=== PATIENT | male | born 1980 | race Caucasian/White ===

== ENCOUNTER 2020-12-06 03:33 | Emergency (ER) | payer BC, SELFPAY ==
[2020-12-06 03:36] VITALS: BP 113/84; PULSE 68; RESP 16; TEMP 35.8; O2SAT 100; BMI 23.1
--- NOTE | 2020-12-06 03:51 | ED.VIS.GEN ---
History of Present Illness Chief Complaint: ETOH Intox Informant: Patient, Family Onset: Today Current Severity: Moderate Maximum Severity: Moderate Narrative: Patient presents secondary to EtOH intoxication and vomiting. Significant other states he had about 6 shots tonight. For about an hour he could not stop vomiting and she became concerned. Patient complains of some mild pain in his epigastrium. - Past Medical History (1) History of pulmonary embolism Status: Resolved Past Medical History - Allergies and Home Meds Allergies/Adverse Reactions: Allergies No Known Allergies Allergy (Verified 12/06/20 03:34) Primary Care Physician: Care Physician,No Primary [NON-STAFF] - Prior records reviewed: Yes Surgical History: no surgical history Lives: Spouse/ Significant Other Smoking Status: Current some day smoker Review of Systems General: Denies: Chills, Fever ENT: Reports: Sore throat. Denies: Bilateral ear pain Cardiovascular: Denies: Chest pain Respiratory: Denies: Dyspnea, Cough Gastrointestinal: Reports: Abdominal pain, Nausea, Vomiting. Denies: Diarrhea Genitourinary: Denies: Dysuria Musculoskeletal: Denies: Swelling, Extremity Pain Skin: Denies: Rash Hematologic: Denies: Easy bruising, Easy bleeding Allergy: Denies: Uticaria Physical Exam Vital Signs/Narrative: Vital Signs Temp Pulse Resp BP Pulse Ox 12/06/20 03:36 96.4 F L 68 16 113/84 H 100 Inital Vital Signs reviewed: Yes General: Well nourished, Well developed Head: Normocephalic Cardiovascular: Regular rate, Regular rhythm Respiratory: No distress, CTA bilaterally Abdomen: Soft, Tender - Mild tenderness in the epigastrium.. Negative for: Guarding, Rebound tenderness Skin: Normal color Neurological: Alert Psychological: Normal affect Diagnostic/Tx/Re-eval - Medical Decision Making Patient was given a liter IV fluid along with a dose of Zofran. On repeat evaluation he has been sleeping comfortably. He states he feels little bit better. is comfortable watching him at home. He will be discharged with her. ED Disposition - Plan for ED Patient: Disposition: Home or Assisted Living Diagnosis: Alcohol intoxication Instructions: ED Alcohol Abuse Referrals: Marshall Guillen DO [NON CLINICAL AFFILIATE] - As Needed
[2020-12-06] MEDS: 0.9% Normal Saline 1,000 ML 1000 ML IV (04:40)
[2020-12-06] MEDS: Ondansetron 4 MG/2 ML Vial IV (04:40)
[2020-12-06 05:31] VITALS: BP 113/69; PULSE 65; RESP 15; O2SAT 99
[2020-12-06 06:01] VITALS: BP 114/71; PULSE 60; RESP 18; O2SAT 98
== END 2020-12-06 06:02 | disposition home or self-care (01) ==
PROVIDERS: Emergency Provider Emergency Medicine; PCP Family Medicine
DX: F10.129 Alcohol abuse with intoxication, unspecified (principal); Z86.711 Personal history of pulmonary embolism
CPT/HCPCS: 96361; 96374; 99284; A4216; J2405

== ENCOUNTER 2022-03-19 09:48 | Emergency (ER) | payer BC, SELFPAY ==
[2022-03-19 09:48] VITALS: BP 129/86; PULSE 50; RESP 17; TEMP 35.9; O2SAT 99; BMI 23.6
--- NOTE | 2022-03-19 10:10 | CT_ITS ---
STUDY: CT ABDOMEN AND PELVIS WITH CONTRAST REASON FOR EXAM: Male, 41 years old. RIGHT FLANK PAIN RADIATION DOSAGE (If Supplied By Facility): CTDIvol = ( 13.55 ) mGy, DLP = ( 389.50 ) mGycm TECHNIQUE: Transaxial images were obtained from the dome of the diaphragm to the symphysis pubis without oral contrast. IV 100mL Isovue-300 was administered. Sagittal and coronal images were reconstructed. Individualized dose optimization techniques were used for this CT. COMPARISON: None. FINDINGS: Minimal linear atelectasis at the lung bases. The visualized portions of the heart are within normal limits. There is a 3.1 mm cyst in the inferior aspect of the right lobe of the liver. Normal gallbladder and extrahepatic biliary system. Normal spleen. Normal pancreas. Normal bilateral adrenal glands. Normal right kidney. Normal left kidney. Normal visualized stomach. Normal small intestine. There are multiple colonic diverticula consistent with diverticulosis. The appendix is visualized and appears normal. Normal abdominal aorta. Normal inferior vena cava. Normal retroperitoneum. There is a 2 mm calculus at the base of the bladder on the right side. This is suggestive of a recently passed right ureteral calculus. Normal abdominal wall. Deformity along the inferior anterior aspect of the L2 vertebrae. Mild anterior spondylosis at the L2-L3 and L3-L4 levels. CT/Abdomen/Pelvis W IV Cont ONLY IMPRESSION: 2 mm calculus is seen at the base of the bladder on the right side. This is suggestive of a recently passed right ureteral calculus. Tiny subcentimeter cyst in the right lobe of the liver. Sigmoid diverticulosis. Electronically Signed: Harjit Armenta MD at 10:46 EDT ,
--- NOTE | 2022-03-19 10:11 | ED.VIS.GI ---
HPI HPI - GI History of Present Illness Chief Complaint: Abd Pain Informant: patient Abdominal Pain/Flank Pain Onset: Today Timing: Continuous Quality: Aching Location: Right Flank Current Severity: Mild Maximum Severity: Mild Worsened by: Nothing Relieved by: Nothing Nausea/Vomiting/Emesis GI Symptom: Negative for Nausea or Vomiting Diarrhea/Melena/Hematochezia GI Symptom: Negative for Diarrhea, Melena or Hematochezia Narrative Narrative: 41-year-old male COVID-positive from about 10 days ago. Prior history of pulmonary emboli about 10 years ago. States about half an hour ago after waking up he noticed right flank pain. Denies any nausea, vomiting, diarrhea or constipation. No melena or fever. Mild right testicular pain. No dysuria or hematuria. No prior history of pain like this before. No injury or trauma. Nothing particular makes the pain better or worse. He has never had any abdominal surgeries. Prior similar symptoms: No Recent Illness/Hospitalization: No PFSH PFSH Medical History Pulmonary embolism Home Medications NK 12/06/20 [History Last Taken Unknown] Allergy/AdvReac Type Severity Reaction Status Date / Time No Known Allergies Allergy Verified 03/19/22 09:48 Social History Smoking Status: Current some day smoker tobacco type: cigarettes ROS ROS ED ROS Narrative Right flank abdominal pain. Review of Systems ROS Unobtainable: Denies due to encephalopathy Constitutional Constitutional ED: Denies chills ENT ENT ED: Denies ear pain Cardiovascular Cardiovascular: Denies chest pain Respiratory/Chest Respiratory/Chest: Denies cough Gastrointestinal Gastrointestinal: Reports abdominal pain; Denies constipation, diarrhea, melena, nausea or vomiting Genitourinary Genitourinary ED: Denies dysuria or hematuria Musculoskeletal Musculoskeletal: Denies arthralgias Integumentary Denies abscess Neurologic Neurologic: Denies headache(s) Psychiatric Psychiatric: Denies anxiety Endocrine Endocrinology: Denies polydipsia Hematologic/Lymphatic Hematologic/Lymphatic: Denies easy bleeding Allergic/Immunologic Allergic/Immunologic ED: Denies mouth swelling EXAM Physical Exam Narrative Exam Narrative: 41-year-old male no acute distress. Vital signs are stable afebrile. H EENT exam unremarkable. Multiple piercings. Moist mucous membranes. Neck nontender no lymphadenopathy. Lungs clear to auscultation bilaterally. Heart regular rhythm rate about 55 no murmur. Abdomen soft nondistended normal bowel sounds no peritoneal signs. No signs of trauma. Mild reproducible tenderness on the midportion of the right flank. Below the right upper quadrant and above McBurney's point. No distention. No hernia. No signs of obstruction. Back tenderness. Moving all 4 extremities. Neurologically is awake and alert. Const Vital Signs: 03/19/22 09:48 Temperature 96.7 F L Temperature Source Temporal Pulse Rate 50 L Respiratory Rate 17 Blood Pressure 129/86 H Blood Pressure Mean 100 Pulse Ox 99 Oxygen Delivery Method Room Air Positive well nourished and well developed; Negative for obese, cachectic, contractures or unkempt General Appearance ED: well developed; Negative for unkempt, cachectic, contractures or pallor Nutritional Appearance: Negative for cachectic or obese HEENT Reports moist mucous membranes normocephalic and atraumatic; Negative for trauma or tenderness Eyes PERRL and EOMs intact bilaterally General Eye ED: Negative for pale conjunctiva or scleral icterus Neck no lymphadenopathy, supple and no JVD General: Negative for tenderness Carotids: Negative for other Lymph Lymphatic: Negative for other Resp normal respiratory effort and clear to auscultation bilaterally Effort and Inspection: Negative for respiratory distress, retractions or pain with movement Auscultation: Negative for rales, rhonchi or wheezes Cardio regular rhythm, S1 normal heart sound and S2 normal heart sound; Negative for regular rate Rate: bradycardia GI non-distended and no masses; Negative for non-tender Inspection: Negative for abdominal distention Auscultation: normoactive bowel sounds; Negative for hyperactive bowel sounds or hypoactive bowel sounds Palpation: soft and tender; Negative for guarding, rigid, hepatomegaly, splenomegaly, hernia, mass or pulsatile mass Back/Spine no CVA tenderness General Back: Negative for CVA tenderness Cervical Spine: Negative for cervical spine tenderness Thoracic Spine / Upper Back: Negative for thoracic spinal tenderness Lumbar Spine / Lower Back: Negative for lumbar spinal tenderness Coccyx: Negative for other Extremity full ROM General Extremety ED: Negative for edema or tenderness General Extremity: Negative for edema Neuro CN's II-XII intact bilaterally, moves all extremities and no sensory deficits noted Sensorium / Orientation: alert, oriented to person, oriented to place and oriented to time; Negative for orientation impaired, confused or lethargic Motor Exam: strength 5/5 throughout Psych Appearance: Negative for unkempt Skin no wounds General Skin Exam: Negative for jaundice or pallor Lesions: no lesions Rashes: no rashes Trauma: Negative for abrasion Nails: Negative for discolored MDM MDM MDM Narrative Medical decision making narrative: 41-year-old male with right flank pain. Mildly reproducible. Not a McBurney's point. No Monge sign. No history or signs of trauma. CAT scan and labs being obtained. He did not want anything for pain or nausea at this time. Repeat exam patient doing well at 11:07 AM. Will be discharged home. Tylenol and/or Motrin for pain. Lab Data Attestation: I reviewed the patient's lab results. Lab results narrative: CBC White count of 4. H&H 15 and 45. Platelets unremarkable. Gap 3 BUN and creatinine of 17 and 1. Liver enzymes normal. Lipase normal at 97. CTA shows a recently passed ureteral calculi and bladder about 2 mm. Right great thank you as read by the radiologist. Reviewed by me. Urine has no nitrates. 150 occult blood. Consistent with a recently passed stone. No infection. 5-10 red cells on the microscopic. No white cells. No bacteria. Labs: Laboratory Results - last 24 hr 03/19/22 03/19/22 03/19/22 10:10 10:10 10:41 WBC 4.7 RBC 4.96 Hgb 15.1 Hct 45.2 MCV 91.1 MCH 30.4 MCHC 33.4 RDW Std Deviation 40.6 RDW Coeff of Gregoria 12.3 Plt Count 275 MPV 9.3 Immature Gran % (Auto) 0.600 Neut % (Auto) 55.1 Lymph % (Auto) 31.9 [place] % (Auto) 6.3 Eos % (Auto) 5.5 H Baso % (Auto) 0.6 Absolute Neuts (auto) 2.6 Absolute Lymphs (auto) 1.51 Nucleated RBC % 0 Sodium 138 Potassium 4.0 Chloride 109 H Carbon Dioxide 26.0 Anion Gap 3 L BUN 17 Creatinine 1.03 Estim Creat Clear Calc 86.03 Est GFR (MDRD) Af Amer 103 Est GFR (MDRD) Non-Af 85 BUN/Creatinine Ratio 16.5 Glucose 106 Calcium 8.3 L Total Bilirubin 0.20 AST 16 ALT 22 Alkaline Phosphatase 65 Total Protein 6.6 Albumin 3.4 Globulin 3.2 Albumin/Globulin Ratio 1.1 Lipase 97 Urine Color Yellow Urine Clarity Clear Urine pH 6.0 Ur Specific [place] 1.015 Urine Protein 30 H Urine Glucose (UA) Normal Urine Ketones Negative Urine Occult Blood 150 H Urine Nitrite Negative Urine Bilirubin Negative Urine Urobilinogen Normal Ur Leukocyte Esterase Negative Urine RBC 5-10 SEEN Urine WBC 0-5 SEEN Ur Squamous Epith Cells 0 SEEN Urine Bacteria 0 SEEN Urine Mucus 0 SEEN Radiography Diagnostic Testing: Clinical Impression(s) from Imaging Studies Abdomen/Pelvis CT 03/19/22 10:10 IMPRESSION: 2 mm calculus is seen at the base of the bladder on the right side. This is suggestive of a recently passed right ureteral calculus. Tiny subcentimeter cyst in the right lobe of the liver. Sigmoid diverticulosis. Electronically Signed: Harjit Armenta MD at 10:46 EDT , Discharge Plan Triage Chief Complaint: Abd Pain ED Provider: Shyam Edge Dx/Rx/DC Orders Clinical Impression: Kidney stone on right side Instructions: ED Kidney Stone w/ Colic Prescriptions: No Action NK Primary Care Provider: Fermin Ludwig Referrals: Fermin Ludwig MD [Primary Care Provider] - As Needed Activity Restrictions/Additional Instructions: You have a small kidney stone in your passage or in your bladder. You should not have any significant pain. This will be passed in your urine in the next several days. Motrin and/or Tylenol for any further pain. Follow-up with your doctor as needed. Disposition Disposition: Home, Self Care
[2022-03-19 10:25] LABS: Absolute Lymphocyte Count 1.51 X10^3/uL (0.83-4.51); Absolute Neutrophil Count 2.6 X10^3/uL (2.0-7.7); Basophil# 0.03 X10^3/uL; Basophil% 0.6 % (0-1); Eosinophil# 0.26 X10^3/uL; Eosinophils% 5.5 % (0-5); Hematocrit 45.2 % (40-54); Hemoglobin 15.1 g/dL (13.0-16.5); Lymphocyte # 1.51 X10^3/ul (0.83-4.51); Lymphocyte % 31.9 % (19-41); Mean Corp Hgb Conc 33.4 g/dL (32-36); Mean Corpuscular Hgb 30.4 pg (27.0-32.0); Mean Corpuscular Volume 91.1 fL (80-94); Mean Platelet Vol. 9.3 fl (6.2-12.0); Monocyte% 6.3 % (0-10); NRBC Flagged by Analyzer 0 % (0-5); Neutrophil % 55.1 % (47-70); Platelet Count 275 K/mm3 (150-450); RBC Distribution Width CV 12.3 % (11.6-14.6); RBC Distribution Width SD 40.6 fl (35.1-43.9); Red Blood Count 4.96 M/mm3 (4.6-6.2); White Blood Count 4.7 K/mm3 (4.4-11.0)
[2022-03-19 10:42] LABS: ALB/GLOB Ratio 1.1 RATIO (0.9-2.4); AST(SGOT) 16 U/L (15-37); Alanine Aminotransfer ALT/SGPT 22 U/L (16-61); Albumin, Serum 3.4 g/dL (3.2-5.0); Alkaline Phosphatase 65 U/L (45-117); Anion Gap 3 (5-15); BUN 17 mg/dL (7-18); BUN/Creat Ratio 16.5 RATIO (10-20); Calcium,Total 8.3 mg/dL (8.5-10.1); Chloride 109 mmol/L (98-107); Creatinine, Serum 1.03 mg/dL (0.70-1.30); EST Glomerular Filtration Rate 85 mL/min (>60); Est Glom Filt Rate - Afr Amer 103 mL/min (>60); Estimated Creatinine Clearance 86.03 ml/min; Globulin 3.2 g/dL (2.2-4.2); Glucose 106 mg/dL (74-106); Lipase 97 U/L (73-393); Protein, Total 6.6 g/dL (6.4-8.2); Sodium Level 138 mmol/L (136-145)
[2022-03-19 10:50] LABS: Bacteria 0 SEEN /hpf (None Seen); Mucous, Urine 0 SEEN /hpf (<or=2+); Squamous Epithelial Cells - UA 0 SEEN /hpf (0-5)
[2022-03-19 10:53] LABS: Color, Urine Yellow (Yellow); Glucose, Dipstick Normal (Normal); Ketone-Dipstick Negative (Negative); Leukocyte Esterase-Dipstick Negative /ul (Negative); Nitrite-Dipstick Negative (Negative); Occult Blood-Urine 150 /ul (Negative); Protein-Dipstick 30 mg/dl (Negative); Specific Gravity, Urine 1.015 (1.002-1.030); Urine Bilirubin Dipstick Negative (Negative); Urine Clarity Clear (Clear); Urine Urobilinogen Normal (Normal)
[2022-03-19 11:10] LABS: Red Blood Cells-Urine 5-10 SEEN /hpf (0-5); White Blood Cells 0-5 SEEN /hpf (0-5)
[2022-03-19 11:24] VITALS: BP 116/73; PULSE 49; RESP 16; O2SAT 98
== END 2022-03-19 11:25 | disposition home or self-care (01) ==
PROVIDERS: Emergency Provider Emergency Medicine; PCP Family Medicine; Visit Provider Emergency Medicine
DX: N21.0 Calculus in bladder (principal); F17.210 Nicotine dependence, cigarettes, uncomplicated; U07.1 COVID-19
CPT/HCPCS: 74177; 80053; 81001; 83690; 85025; 99283; Q9967; A4216

== ENCOUNTER 2023-07-22 20:12 | Emergency (ER) | payer BC, SELFPAY ==
[2023-07-22 20:13] VITALS: BP 131/86; PULSE 70; RESP 16; TEMP 36.1; O2SAT 98; BMI 25.5
[2023-07-22 20:17] VITALS: BP 131/86; PULSE 70; RESP 16; TEMP 36.1; O2SAT 98
[2023-07-22 20:22] VITALS: O2SAT 98
--- NOTE | 2023-07-22 21:27 | CT_ITS ---
EXAM: CT ANGIOGRAPHY CHEST WITHOUT AND WITH INTRAVENOUS CONTRAST CLINICAL INDICATION: chest pain TECHNIQUE: Helically acquired angiography images were obtained of the chest without and with intravenous contrast. This CT exam was performed using one or more of the following dose reduction techniques: automated exposure control, adjustment of the mA and/or kV according to patient size, and/or use of iterative reconstruction technique. MIP reconstructed images were created and reviewed. CONTRAST: IV 100mL Isovue-370 RADIATION DOSE: Total DLP: 296.81 mGy-cm. COMPARISON: Portable chest radiograph of this same date. FINDINGS: PULMONARY ARTERIES: Unremarkable. Normal in caliber. No evidence of pulmonary embolism. AORTA: Unremarkable. Normal in caliber. No evidence of dissection. GREAT VESSELS OF AORTIC ARCH: Unremarkable. Normal in caliber. No evidence of dissection. LUNGS AND PLEURAL SPACES: Linear scarring noted at the lung bases. Minimal pleural parenchymal scarring at the right lung base laterally. No acute pulmonary infiltrates. No pleural effusion. No mass. No pneumothorax. HEART: No coronary artery calcification is visualized. No significant pericardial effusion. MEDIASTINUM: Unremarkable. No mediastinal or hilar adenopathy. Esophagus is unremarkable. No hiatal hernia. THYROID: Unremarkable. No thyroid lesions. BONES/JOINTS: No acute osseous abnormality. Minimal thoracic degenerative spurring. Upper lumbar degenerative disc disease. No suspicious lytic or blastic abnormality. INTRAPERITONEAL SPACE: Visualized portions of the liver, gallbladder, pancreas, spleen, adrenal glands and renal upper poles are unremarkable. No pneumoperitoneum is noted. CT/CTA Chest W/WO Contrast IMPRESSION: Negative for PE. No thoracic aortic dissection or acute pulmonary infiltrates. Electronically Signed: Jimmy Nunes MD at 23:12 EST ,
--- NOTE | 2023-07-22 21:27 | EKG12_ITS ---
Test Reason : DYSRHYTHMIA Blood Pressure : / mmHG Vent. Rate : 056 BPM Atrial Rate : 056 BPM P-R Int : 126 ms QRS Dur : 076 ms QT Int : 406 ms P-R-T Axes : 047 051 028 degrees QTc Int : 391 ms Sinus bradycardia Otherwise normal ECG Confirmed by FIDE HOWELL, SHOAIB ([id number]), scientific publications editor YELENA ALDRIDGE ([id number]) on 07/25/2023 10:43:02 AM Referred By: MISTY Confirmed By:SHOAIB ELIZALDE MD
--- NOTE | 2023-07-22 21:51 | EDS_ITS ---
HPI History of Present Illness Chief Complaint: Cough Narrative Narrative: 42-year-old male presenting with right-sided chest pain, dyspnea, cough times a month and a half. Patient states he was seen by urgent care last week and a chest x-ray which was normal. He was put on prednisone and has been doing butyryl but does not feeling better. He notes that he is coughing up blood- tinged sputum. Denies fevers anymore. States his chest wall pain on the right feels like musculoskeletal pain. Patient does report a history of unprovoked PE in the past. He is not sure why he had it but he is admitted for heparin drip. No source was found. Patient has not had 1 since. He is not currently anticoagulated. History of cardiac disease. PFSH PFSH Medical History Pulmonary embolism Smoker Home Medications albuterol sulfate 90 mcg/actuation aerosol inhaler 2 puff inhalation Q4H PRN shortness of breath or wheezing 07/22/23 [History Last Taken Unknown] prednisone 20 mg tablet 40 mg PO DAILY 07/22/23 [History Last Taken Unknown] Allergy/AdvReac Type Severity Reaction Status Date / Time No Known Allergies Allergy Verified 07/22/23 20:12 Social History Smoking Status: Light Smoker (<10/day) ROS [facility] ED Constitutional Constitutional ED: Denies chills, fever(s) or sweats Eyes Eyes: Denies blurry vision or change in vision ENT ENT ED: Denies ear pain or sore throat Cardiovascular Cardiovascular: Reports chest pain; Denies palpitations or racing heartbeat Respiratory/Chest Respiratory/Chest: Reports cough, dyspnea and other Details: Blood-tinged sputum ; Denies sputum Gastrointestinal Gastrointestinal: Denies abdominal pain, constipation, diarrhea, nausea or vomiting Genitourinary Genitourinary ED: Denies dysuria, hematuria or urinary frequency Musculoskeletal Musculoskeletal: Denies arthralgias, myalgias or neck pain Integumentary Denies abscess, Abrasions or rash Neurologic Neurologic: Denies headache(s), paresthesias or weakness Psychiatric Psychiatric: Denies anxiety, depression, suicidal ideation or suicidal thoughts Endocrine Endocrinology: Denies polydipsia or polyuria EXAM Physical Exam Const Vital Signs: 07/22/23 20:13 07/22/23 20:17 07/22/23 20:22 Temperature 96.9 F L 96.9 F L Temperature Source Temporal Temporal Pulse Rate 70 70 Respiratory Rate 16 16 Respiratory Effort Normal Respiratory Depth Normal Respiratory Pattern Normal Blood Pressure 131/86 H 131/86 H Blood Pressure Mean 101 101 Pulse Ox 98 98 Oxygen Delivery Method Room Air Room Air Room Air 07/22/23 22:09 07/22/23 21:27 Temperature Temperature Source Pulse Rate 66 Respiratory Rate 16 Respiratory Effort Respiratory Depth Respiratory Pattern Blood Pressure 136/92 H Blood Pressure Mean 106 Pulse Ox 98 Oxygen Delivery Method Room Air Room Air Positive well nourished General Appearance ED: NAD; Negative for pallor HEENT Reports moist mucous membranes Eyes PERRL and EOMs intact bilaterally Neck no lymphadenopathy Resp normal respiratory effort Auscultation: rhonchi right lower and wheezes right lower Cardio regular rate and regular rhythm GI non-tender Extremity normal to inspection General Extremety ED: Negative for edema or tenderness General Extremity: Negative for edema Neuro oriented x3 and CN's II-XII intact bilaterally Sensorium / Orientation: alert Psych mental status grossly normal Skin no wounds General Skin Exam: Negative for jaundice or pallor MDM MDM MDM Narrative Medical decision making narrative: 42-year-old male present with cough, shortness of breath, chest wall pain on the right. History of PE currently having some blood-tinged sputum. Differential includes ACS, pneumonia, PE, dehydration, electrolyte abnormalities, costochondritis. CBC was obtained to assess white blood cell count, hemoglobin, platelets. BMP was obtained to assess renal function and electrolytes. High- sensitivity troponin and EKG were obtained to assess for ischemia/dysrhythmia. We discussed doing a D-dimer however the patient has a history of PE which is unprovoked so we decided we would go CBC, BMP, troponin, EKG. EG shows sinus bradycardia without sign of ischemic change or ectopy. This is on my interpretation. Chest x-ray shows no acute process my interpretation. CBC, BMP, troponin all within normal limits. CTA was performed to rule out PE and this is negative for PE, dissection, infiltrates. Patient counseled on findings. At this point I feel patient stable for discharge. I recommended follow-up with his primary care provider in 5 to 7 days. Return precautions discussed. impression: 1. Right-sided chest pain 2. Dyspnea 3. History of PE Lab Data Labs: Laboratory Results - last 24 hr 07/22/23 21:32 WBC 8.5 RBC 5.19 Hgb 15.7 Hct 47.2 MCV 90.9 MCH 30.3 MCHC 33.3 RDW Std Deviation 42.2 RDW Coeff of Gregoria 12.7 Plt Count 364 MPV 8.2 Immature Gran % (Auto) 0.500 Neut % (Auto) 90.2 H Lymph % (Auto) 7.9 L [place] % (Auto) 0.9 Eos % (Auto) 0.0 Baso % (Auto) 0.5 Absolute Neuts (auto) 7.6 Absolute Lymphs (auto) 0.67 L Nucleated RBC % 0 Sodium 138 Potassium 4.3 Chloride 105 Carbon Dioxide 27.0 Anion Gap 6 BUN 21 H Creatinine 1.14 Estim Creat Clear Calc 76.95 Est GFR (MDRD) Af Amer 91 Est GFR (MDRD) Non-Af 75 BUN/Creatinine Ratio 18.4 Glucose 152 H Calcium 8.7 Troponin I High Sens 5 Radiography Diagnostic Testing: Clinical Impression(s) from Imaging Studies Chest CTA 07/22/23 21:27 IMPRESSION: Negative for PE. No thoracic aortic dissection or acute pulmonary infiltrates. Electronically Signed: Jimmy Nunes MD at 23:12 EST , Chest X-Ray 07/22/23 21:53 IMPRESSION: Slight blunting of the right lateral costophrenic angle by a minimal pleural effusion or basilar pleural thickening. No acute pulmonary infiltrates. Electronically Signed: Jimmy Nunes MD at 22:31 EST , Discharge Plan Triage Chief Complaint: Cough ED Provider: Anthony Greenfield Dx/Rx/DC Orders Instructions: ED Bronchitis, No Antibiotic (Adult) Prescriptions: No Action albuterol sulfate 90 mcg/actuation HFA aerosol inhaler 2 puff INHALATION Q4H PRN (Reason: shortness of breath or wheezing) Patient Comments: inhale 2 puffs by mouth and INTO THE LUNGS every 4 hours if neede... (REFER TO PRESCRIPTION NOTES). prednisone 20 mg tablet 40 mg PO DAILY Patient Comments: take 2 tablets by mouth once daily for 5 days Primary Care Provider: Aurora Anton Referrals: Aurora Anton, [employer] [Primary Care Provider] - Disposition Disposition: Home, Self Care
--- NOTE | 2023-07-22 21:53 | RAD_ITS ---
EXAM: XR CHEST, 1 VIEW CLINICAL INDICATION: chest pain TECHNIQUE: Frontal view of the chest. COMPARISON: No relevant prior studies available. FINDINGS: LUNGS AND PLEURAL SPACES: No consolidation or edema. No pneumothorax. Slight blunting of the right lateral costophrenic angle by pleural thickening versus minimal pleural effusion. Left lateral costophrenic angle is not blunted. HEART: Unremarkable. Cardiac silhouette not enlarged. Normal pulmonary vasculature. MEDIASTINUM: Minimal elongation of the thoracic aorta. No hilar enlargement or mediastinal widening. Trachea is midline. BONES/JOINTS: Unremarkable. No acute osseous abnormality. SOFT TISSUES: Unremarkable. RAD/Chest 1 View (Portable) IMPRESSION: Slight blunting of the right lateral costophrenic angle by a minimal pleural effusion or basilar pleural thickening. No acute pulmonary infiltrates. Electronically Signed: Jimmy Nunes MD at 22:31 EST ,
[2023-07-22 21:54] LABS: Absolute Lymphocyte Count 0.67 X10^3/uL (0.83-4.51); Absolute Neutrophil Count 7.6 X10^3/uL (2.0-7.7); Basophil# 0.04 X10^3/uL; Basophil% 0.5 % (0-1); Hematocrit 47.2 % (40-54); Hemoglobin 15.7 g/dL (13.0-16.5); Lymphocyte # 0.67 X10^3/ul (0.83-4.51); Lymphocyte % 7.9 % (19-41); Mean Corp Hgb Conc 33.3 g/dL (32-36); Mean Corpuscular Hgb 30.3 pg (27.0-32.0); Mean Corpuscular Volume 90.9 fL (80-94); Mean Platelet Vol. 8.2 fl (6.2-12.0); Monocyte# 0.08 X10^3/uL; Monocyte% 0.9 % (0-10); NRBC Flagged by Analyzer 0 % (0-5); Neutrophil # 7.64 X10^3/uL (2.7-7.7); Neutrophil % 90.2 % (47-70); Platelet Count 364 K/mm3 (150-450); RBC Distribution Width CV 12.7 % (11.6-14.6); RBC Distribution Width SD 42.2 fl (35.1-43.9); Red Blood Count 5.19 M/mm3 (4.6-6.2); White Blood Count 8.5 K/mm3 (4.4-11.0)
[2023-07-22 22:09] VITALS: BP 136/92; PULSE 66; RESP 16; O2SAT 98
[2023-07-22 22:11] LABS: Anion Gap 6 (5-15); BUN 21 mg/dL (7-18); BUN/Creat Ratio 18.4 RATIO (10-20); Calcium,Total 8.7 mg/dL (8.5-10.1); Chloride 105 mmol/L (98-107); Creatinine, Serum 1.14 mg/dL (0.70-1.30); EST Glomerular Filtration Rate 75 mL/min (>60); Est Glom Filt Rate - Afr Amer 91 mL/min (>60); Estimated Creatinine Clearance 76.95 ml/min; Glucose 152 mg/dL (74-106); Potassium 4.3 mmol/L (3.5-5.1); Sodium Level 138 mmol/L (136-145); Troponin-I HS 5 pg/mL (3.0-78.0)
[2023-07-22 23:36] VITALS: PULSE 66; RESP 16
== END 2023-07-22 23:38 | disposition home or self-care (01) ==
PROVIDERS: Emergency Provider Student in an Organized Health Care Education/Training Program; PCP Nurse Practitioner Family; Visit Provider Student in an Organized Health Care Education/Training Program
DX: R07.89 Other chest pain (principal); R00.1 Bradycardia, unspecified; R06.02 Shortness of breath; F17.200 Nicotine dependence, unspecified, uncomplicated; R04.2 Hemoptysis; Z86.711 Personal history of pulmonary embolism
CPT/HCPCS: 71045; 71275; 80048; 84484; 85025; 93005; 99284; Q9967

== ENCOUNTER 2023-07-26 03:34 | Emergency (ER) | payer BC, SELFPAY ==
[2023-07-26 03:35] VITALS: BP 123/91; PULSE 101; RESP 16; TEMP 36.6; O2SAT 97
--- NOTE | 2023-07-26 04:03 | EX.ED.DYSGE1 ---
HPI History of Present Illness Chief Complaint: Nausea/Vomiting Informant: patient and spouse/S.O. Narrative Narrative: Presents to ED for generalized abdominal cramping nausea vomiting and start of loose stools 2 hours prior to arrival. 5 emesis with no hematemesis. Nonbloody stools. Reported a ghost pepper soup 2 hours prior to that on empty stomach. Typically does eat spicy food however not on an empty stomach. No abdominal surgeries in the past. He just finished prednisone couple days ago for upper respiratory symptoms with a cough. Of note was seen here 4 days ago for chest pains with a negative PE workup including a CTA of the chest. Denies any allergies. Denies fevers. States he is feeling cramping all over when he vomits. PFSH PFSH Medical History Pulmonary embolism Smoker Home Medications dicyclomine 20 mg tablet 20 mg PO TID PRN abdominal cramping #14 tabs 07/26/23 [Rx Last Taken Unknown] ondansetron 4 mg disintegrating tablet 4 mg PO Q8H PRN PRN Nausea #10 tabs 07/26/23 [Rx Last Taken Unknown] Allergy/AdvReac Type Severity Reaction Status Date / Time No Known Allergies Allergy Verified 07/26/23 03:39 Social History Smoking Status: Former smoker ROS ROS ED Constitutional Constitutional ED: Denies chills, fever(s) or sweats Eyes Eyes: Denies change in vision ENT ENT ED: Denies dysphagia or sore throat Cardiovascular Cardiovascular: Denies chest pain, leg edema, palpitations or racing heartbeat Respiratory/Chest Respiratory/Chest: Denies cough, dyspnea or dyspnea on exertion Gastrointestinal Gastrointestinal: Reports abdominal pain, diarrhea, nausea and vomiting Genitourinary Genitourinary ED: Denies dysuria, hematuria or urinary frequency Musculoskeletal Musculoskeletal: Reports myalgias; Denies back pain, extremity pain or neck pain Integumentary Denies rash or wounds Neurologic Neurologic: Denies headache(s), paresthesias or weakness EXAM Physical Exam Const Vital Signs: 07/26/23 03:35 Temperature 98 F Temperature Source Oral Pulse Rate 101 H Respiratory Rate 16 Blood Pressure 123/91 H Blood Pressure Mean 101 Pulse Ox 97 Oxygen Delivery Method Room Air Positive well nourished and well developed General Appearance ED: well developed and NAD HEENT Reports moist mucous membranes normocephalic and atraumatic Eyes PERRL, EOMs intact bilaterally and conjunctivae normal General Eye ED: Yes normal appearance of both eyes Neck no lymphadenopathy and supple General: Negative for tenderness Chest Wall Chest: Negative for tenderness Resp normal respiratory effort and normal air movement Effort and Inspection: symmetric chest movement; Negative for respiratory distress Cardio regular rate, regular rhythm and no murmurs Peripheral Pulses: pulses 2+ throughout GI normal to inspection, nondistended, normoactive bowel sounds GI Narrative: Mild generalized tenderness, soft abdomen. Negative Monge's McBurney's tenderness. No guarding or rebound. Palpation: Negative for guarding or rebound tenderness present Back/Spine no CVA tenderness and no thoracic nor lumbar tenderness Extremity normal to inspection General Extremety ED: Negative for edema or tenderness General Extremity: Negative for edema Neuro oriented x3 and no sensory deficits noted Sensorium / Orientation: awake and alert Skin no rashes or lesions noted and no wounds MDM MDM MDM Narrative Medical decision making narrative: Interventions / MDM: Differential diagnosis: Abdominal pain, nausea and vomiting Diagnosis considered but do not suspect: No pneumoperitoneum seen on CT. Normal appendix. No appendicitis. My EKG interpretation: N/A Imaging independently reviewed and interpreted by myself: CT abdomen pelvis IV contrast: Normal appendix. Fluid-filled loops of bowel consistent with enteritis. No obstructions. External documents reviewed: N/A Test considered but not ordered:N/A ED course: Patient generalized pain vomiting with no hematemesis. Nonbloody stools. He ate ghost pepper soup prior. Abdominal labs were ordered, IV fluids, GI cocktail Pepcid along with Zofran and. He is ordered for Levsin due to generalized cramping. 0500: Clinically was feeling much better. Abdomen is soft. Awaiting CBC. Lipase is liver enzymes are normal. Creatinine 1.22 BUN 22. Normal electrolytes. He was questing ice chips. This was allowed and he was tolerating it. He is clinically was feeling better. 0520: Results of CBC returns white count 22.7 hemoglobin 18 platelets 365. 4 days ago was normal. We discussed with the patient, due to his leukocytosis we will obtain a CT scan of the abdomen pelvis for further evaluation. His abdomen was soft on reevaluation. However he ate significant spicy foods. Differential includes pneumoperitoneum. However clinically does not appear that way. 0630: CT scan normal appendix, gastroenteritis findings. Symptoms and abdomen remains soft. Meds to bed with Bentyl and Zofran. Continue oral fluids for hydration. Return precautions. All questions were answered. Re-evaluation: stable Disposition discussed with patient/family/significant other: Patient and significant other. Case discussed with consulting clinician: N/A This note was generated with [employer] dictation software. It may contain incorrect words, spelling, and punctuation that were not noted in checking the note before signing. Lab Data Attestation: I reviewed the patient's lab results. Labs: Laboratory Results - last 24 hr 07/26/23 04:20 WBC 22.7 H RBC 5.98 Hgb 18.4 H* Hct 53.1 MCV 88.8 MCH 30.8 MCHC 34.7 RDW Std Deviation 41.2 RDW Coeff of Gregoria 12.8 Plt Count 365 MPV 8.2 Immature Gran % (Auto) 0.700 Neut % (Auto) 93.8 H Lymph % (Auto) 1.4 L [place] % (Auto) 3.6 Eos % (Auto) 0.2 Baso % (Auto) 0.3 Absolute Neuts (auto) 21.3 H Absolute Lymphs (auto) 0.31 L Nucleated RBC % 0 Differential Comment SCANNED Diff Path Review May foll Sodium 138 Potassium 4.0 Chloride 104 Carbon Dioxide 24.0 Anion Gap 10 BUN 24 H Creatinine 1.22 Estim Creat Clear Calc 71.91 Est GFR (MDRD) Af Amer 84 Est GFR (MDRD) Non-Af 69 BUN/Creatinine Ratio 19.7 Glucose 150 H Calcium 8.9 Total Bilirubin 0.70 Direct Bilirubin 0.17 AST 17 ALT 27 Alkaline Phosphatase 86 Total Protein 8.7 H Albumin 4.3 Globulin 4.4 H Lipase 19 Radiography Diagnostic Testing: Clinical Impression(s) from Imaging Studies Abdomen/Pelvis CT 07/26/23 05:30 IMPRESSION: Fluid-filled loops of bowel suggesting diarrheal state. Correlate clinically for possible viral enteritis. No other significant abnormality. Electronically Signed: Fermin Lynn MD at 6:38 EST , Discharge Plan Triage Chief Complaint: Nausea/Vomiting ED Provider: Fortino Weston Dx/Rx/DC Orders Clinical Impression: Abdominal cramping, Nausea & vomiting, Gastroenteritis Instructions: Abdominal Pain, ED Gastroenteritis, Viral (Adult), ED Vomiting (Adult) Prescriptions: New dicyclomine 20 mg tablet 20 mg PO TID PRN (Reason: abdominal cramping) Qty: 14 0RF ondansetron [ondansetron] 4 mg tablet,disintegrating 4 mg PO Q8H PRN PRN (Reason: Nausea) Qty: 10 0RF Stand Alone Forms: ED Work / School Excuse Primary Care Provider: Aurora Anton Referrals: Aurora Anton, [employer] [Primary Care Provider] - 1 Week Activity Restrictions/Additional Instructions: CT scan normal appendix. Signs of gastroenteritis noted. Take medications as prescribed avoid spicy foods for couple days. Continue oral fluids for hydration. Follow-up with your doctor. If symptoms worsens or returns, return to ED for reevaluation. Disposition Disposition: Home, Self Care Discharge Date/Time: 07/26/23 06:50
[2023-07-26] MEDS: Ondansetron 4 MG/2 ML Vial IV (04:16)
[2023-07-26] MEDS: Mag Hydrox/Al Hydrox/Simeth 30 ML UDC PO (04:16)
[2023-07-26] MEDS: 0.9% Normal Saline (1000mL) 1,000 ML 1000 ML IV (04:17)
[2023-07-26] MEDS: Hyoscyamine Sulfate 0.125 MG Tablet SL (04:17)
[2023-07-26] MEDS: Famotidine 200 MG/20 ML MDV 20 MG in 0.9% Normal Saline (Pres. free 8 ML 300 MG IV (04:18)
[2023-07-26 04:20] VITALS: BMI 24.0
[2023-07-26 04:29] LABS: Absolute Lymphocyte Count 0.31 X10^3/uL (0.83-4.51); Absolute Neutrophil Count 21.3 X10^3/uL (2.0-7.7); Basophil# 0.06 X10^3/uL; Basophil% 0.3 % (0-1); Eosinophil# 0.04 X10^3/uL; Eosinophils% 0.2 % (0-5); Hematocrit 53.1 % (40-54); Lymphocyte # 0.31 X10^3/ul (0.83-4.51); Lymphocyte % 1.4 % (19-41); Mean Corp Hgb Conc 34.7 g/dL (32-36); Mean Corpuscular Hgb 30.8 pg (27.0-32.0); Mean Corpuscular Volume 88.8 fL (80-94); Mean Platelet Vol. 8.2 fl (6.2-12.0); Monocyte# 0.81 X10^3/uL; Monocyte% 3.6 % (0-10); NRBC Flagged by Analyzer 0 % (0-5); Neutrophil % 93.8 % (47-70); POSITIVE DIFFERENTIAL YES; Platelet Count 365 K/mm3 (150-450); RBC Distribution Width CV 12.8 % (11.6-14.6); RBC Distribution Width SD 41.2 fl (35.1-43.9); Red Blood Count 5.98 M/mm3 (4.6-6.2); White Blood Count 22.7 K/mm3 (4.4-11.0)
[2023-07-26 04:46] LABS: AST(SGOT) 17 U/L (15-37); Alanine Aminotransfer ALT/SGPT 27 U/L (16-61); Albumin, Serum 4.3 g/dL (3.2-5.0); Alkaline Phosphatase 86 U/L (45-117); Anion Gap 10 (5-15); BUN 24 mg/dL (7-18); BUN/Creat Ratio 19.7 RATIO (10-20); Bilirubin, Direct 0.17 mg/dL (0.00-0.30); Calcium,Total 8.9 mg/dL (8.5-10.1); Chloride 104 mmol/L (98-107); Creatinine, Serum 1.22 mg/dL (0.70-1.30); EST Glomerular Filtration Rate 69 mL/min (>60); Est Glom Filt Rate - Afr Amer 84 mL/min (>60); Estimated Creatinine Clearance 71.91 ml/min; Globulin 4.4 g/dL (2.2-4.2); Glucose 150 mg/dL (74-106); Lipase 19 U/L (13-75); Protein, Total 8.7 g/dL (6.4-8.2); Sodium Level 138 mmol/L (136-145)
[2023-07-26 05:27] LABS: Hemoglobin 18.4 g/dL (13.0-16.5)
[2023-07-26 05:28] LABS: Differential Indicated SCAN CRITERIA MET
--- NOTE | 2023-07-26 05:30 | CT_ITS ---
INDICATION: Abdominal pain, cramping, nausea, vomiting, loose stools EXAMINATION: CT Abdomen And Pelvis W/ Contrast Injection TECHNIQUE: Helically acquired images were obtained of the abdomen and pelvis following IV contrast. 2-D reconstructions reviewed. A radiation dose optimization technique was used for this scan. IV Contrast dosage and agent: 100 cc [id number] Oral contrast: None. COMPARISON: CT abdomen and pelvis from 03/19/2022 FINDINGS: LOWER CHEST: Minimal dependent atelectasis. Mild linear scarring right middle lobe. Mildly elevated right hemidiaphragm. Heart size within normal limits. LIVER: Subcentimeter simple cyst within posterior right lobe of liver requiring no additional follow-up. No concerning lesion. GALLBLADDER AND BILIARY TREE: No calcified gallstones identified. No gallbladder wall edema demonstrated. No significant biliary ductal dilation. PANCREAS: No discrete mass or peripancreatic edema. SPLEEN: Normal size without concerning lesion. ADRENAL GLANDS: Unremarkable. KIDNEYS AND URETERS: Normal renal size and position. No perinephric edema or hydronephrosis. No concerning lesion. PERITONEUM: No significant free fluid. No peritoneal free air detected. RETROPERITONEUM: No retroperitoneal mass or pathologic fluid collection. BOWEL: Normal appendix medial to cecum within right lower quadrant. No bowel obstruction or significant bowel thickening. Fluid-filled loops of large and small bowel with paucity of colonic fecal matter. LYMPH NODES: No enlarged mesenteric or retroperitoneal lymph nodes. VESSELS: No acute findings. No abdominal aortic aneurysm. URINARY BLADDER: Unremarkable as visualized. REPRODUCTIVE ORGANS: No pelvic masses. Genital metallic piercings noted. ABDOMINAL WALL: No acute findings or significant hernia defect. BONES: Intact with no suspicious osseous lesion. CT/Abdomen/Pelvis W IV Cont ONLY IMPRESSION: Fluid-filled loops of bowel suggesting diarrheal state. Correlate clinically for possible viral enteritis. No other significant abnormality. Electronically Signed: Fermin Lynn MD at 6:38 EST ,
[2023-07-26 05:39] LABS: Differential Comment SCANNED
[2023-07-26 06:49] VITALS: BP 124/76; PULSE 82; RESP 18; O2SAT 100
[2023-07-26 13:35] LABS: Pathologist Review Reviewed
== END 2023-07-26 06:50 | disposition home or self-care (01) ==
PROVIDERS: Emergency Provider Emergency Medicine; PCP Nurse Practitioner Family; Visit Provider Emergency Medicine
DX: K52.9 Noninfective gastroenteritis and colitis, unspecified (principal); Z87.891 Personal history of nicotine dependence
CPT/HCPCS: 74177; 80048; 80076; 83690; 85025; 96361; 96374; 96375; 99284; J7030; Q9967; A4216; J2405; J3490

== ENCOUNTER 2023-08-18 03:51 | Emergency (ER) | payer BC, SELFPAY ==
[2023-08-18 03:53] VITALS: BP 143/96; PULSE 79; RESP 17; TEMP 36.6; O2SAT 98; BMI 23.9
--- OUTSIDE RECORDS SUMMARY | 2023-08-18 04:27 | XMS RPT_ITS | CCD ---
Author Name Unknown Address [address] [facility] [address] [place] [address] Organization [facility] Care Team Providers Care Electrical Prospecting Operator Name Role Phone LORRI ASHLEY Unavailable Unavailable MONICA CRAWFORD Unavailable Unavailable Monica Crawford MD Primary Care Provider Sloane GRINDER SET UP OPERATOR GEAR TOOL.Aurora GARCIA Primary Care Provider AURORA ANTON Referring Unavailable SLOANE, AURORA Primary Care Unavailable SLOANE, AURORA Primary Care Unavailable AURORA ANTON Referring Unavailable AURORA ANTON Attending Unavailable KNOBLE, AURORA Primary Care Unavailable KNOBLE, AURORA Primary Care Unavailable GILBERTO ROSENTHAL Referring Unavailable KNOBLE, AURORA Primary Care Unavailable KNELI AURORA Referring Unavailable BETTINA NICHOLSON Attending Unavailable KNELI, AURORA Primary Care Unavailable Problems Active Problems Problem Classification Problem Date Documented Da te Episodic/Chronic Acquired foot deformities (1 source) Talipes planus; Translations: [Flat foot [pes planus] (acquired), right foot] Episodic Other connective tissue disease (1 source) Disorder of lower extremity; Translations: [Other muscle spasm] Episodic Other connective tissue disease (2 sources) Pain in both feet; Translations: [Pain in right foot] Episodic Other connective tissue disease (1 source) Bilateral achilles tendonitis; Translations: [Achilles tendinitis, right leg] Episodic Other non-traumatic joint disorders (2 sources) Pain in elbow; Translations: [Pain in right elbow] Episodic Other upper respiratory infections (1 source) Acute upper respiratory infection; Translations: [Acute upper respiratory infection, unspecified] 04-27-2023 Episodic Substance-related disorders (6 sources) Tobacco user; Translations: [Nicotine dependence, unspecified, uncomplicated] Onset: 05-20-2010 08-17-2021 Chronic Past or Other Problems Problem Classification Problem Date Documented Date Episodic/Chronic Immunizations and screening for infectious disease (6 sources) Patient encounter status; Translations: [Encounter for screening for human immunodeficiency virus [HIV]] Onset: 11-19-2022 Episodic Other connective tissue disease (1 source) Pain in right foot; Translations: [Foot pain, bilateral] Onset: 11-19-2022 Episodic Other connective tissue disease (1 source) Pain in left foot; Translations: [Foot pain, bilateral] Onset: 11-19-2022 Episodic Other connective tissue disease (1 source) Other muscle spasm; Translations: [Muscle spasms of both lower extremities] Onset: 11-19-2022 Episodic Other non-traumatic joint disorders (1 source) Pain in right elbow; Translations: [Right elbow pain] Onset: 11-19-2022 Episodic Other screening for suspected conditions (not mental disorders or infectious disease) (3 sources) Encounter for screening for lipoid disorders; Translations: [Encounter for screening for cardiovascular disorders] Onset: 11-19-2022 Episodic Pulmonary heart disease (6 sources) Pulmonary embolism; Translations: [Other pulmonary embolism without acute cor pulmonale] Onset: 07-17-2012 07-17-2012 Episodic Results Test Name Value Interpretation Reference Range Facil ity Vital Signs Date Time Vital Sign Value Performing Clinician Terrance david 04-27-2023 14:46-0400 Body temperature 98.8 [degF] Trav Roger GRINDER SET UP OPERATOR GEAR TOOL.JOSE Work Phone: [facility] 04-27-2023 14:46-0400 Body weight 69.22 kg Trav Roger GRINDER SET UP OPERATOR GEAR TOOL.JOSE Work Phone: [facility] 04-27-2023 14:46-0400 Diastolic blood pressure 80 mm[Hg] Trav Roger GRINDER SET UP OPERATOR GEAR TOOL.DIAMOND DIE POLISHER Work Phone: [facility] 04-27-2023 14:46-0400 Heart rate 76 /min Trav Roger GRINDER SET UP OPERATOR GEAR TOOL.DIAMOND DIE POLISHER Work Phone: [facility] 04-27-2023 14:46-0400 Respiratory rate 16 /min Trav Roger GRINDER SET UP OPERATOR GEAR TOOL.DIAMOND DIE POLISHER Work Phone: [facility] 04-27-2023 14:46-0400 SaO2% (BldA) [Mass fraction] 98 % Trav Roger GRINDER SET UP OPERATOR GEAR TOOL.DIAMOND DIE POLISHER Work Phone: [facility] 04-27-2023 14:46-0400 Systolic blood pressure 122 mm[Hg] Trav Roger GRINDER SET UP OPERATOR GEAR TOOL.DIAMOND DIE POLISHER Work Phone: [facility] 11-19-2022 09:56-0400 Body height 165.1 cm Aurora Anton GRINDER SET UP OPERATOR GEAR TOOL.DIAMOND DIE POLISHER Work Phone: [facility] 11-19-2022 09:56-0400 Body weight 70.76 kg Aurora Anton GRINDER SET UP OPERATOR GEAR TOOL.DIAMOND DIE POLISHER Work Phone: [facility] 11-19-2022 09:56-0400 Diastolic blood pressure 78 mm[Hg] Aurora Anton GRINDER SET UP OPERATOR GEAR TOOL.DIAMOND DIE POLISHER Work Phone: [facility] 11-19-2022 09:56-0400 Heart rate 64 /min Aurora Anton GRINDER SET UP OPERATOR GEAR TOOL.DIAMOND DIE POLISHER Work Phone: [facility] 11-19-2022 09:56-0400 Respiratory rate 16 /min Aurora Anton GRINDER SET UP OPERATOR GEAR TOOL.DIAMOND DIE POLISHER Work Phone: [facility] 11-19-2022 09:56-0400 Systolic blood pressure 110 mm[Hg] Aurora Anton GRINDER SET UP OPERATOR GEAR TOOL.DIAMOND DIE POLISHER Work Phone: [facility] Encounters Encounter Date Encounter Type Care Provider Facility Start: 07-19-2023 End: 07-19-2023 ambulatory AURORA ANTON Facility:[facility] Start: 04-27-2023 End: 04-27-2023 ambulatory AURORA ANTON Facility:[facility] Start: 04-27-2023 End: 04-27-2023 Patient encounter procedure Trav Roger APRN.DIAMOND DIE POLISHER Work Phone: [facility] Procedures Date Procedure Procedure Detail Performing Clinician Start: 09-12-2018 Adult depression screening assessment Monica Crawford MD Work Phone: Plan of Treatment Date Care Activity Detail Author Start: 11-20-2027 LIPID SCREEN LIPID SCREEN [facility] Start: 04-13-2027 Urine microalbumin profile DTAP,TDAP,TD (2 - Td or Tdap) [facility] Start: 09-12-2023 LIPID SCREEN LIPID SCREEN [facility] Start: 04-27-2023 End: 05-11-2023 COVID & INFLUENZA A/B & RSV NAAT, ROUTINE [facility] Work Phone: Immunizations Immunization Date Immunization Notes Care Provider Claudine slaughter 04-13-2017 tetanus toxoid, reduced diphtheria toxoid, and acellular pertussis vaccine, adsorbed Monica Crawford MD Work Phone: [facility] Work Phone: Payers Date Payer Category Payer Unknown [id number] 2012 Unknown [employer] PPO OOS [id number] 2012-Present [phone] [address] [place] [address] PPO [id number] 2012 Unknown [employer] PPO OOS [id number] 2012-Present [phone] [address] [place] [address] PPO [id number] Social History Date Type Detail Facility Start: 09-12-2018 End: 06-08-2017 Tobacco smoking status NHIS Occasional tobacco smoker [facility] End: 06-08-2017 History of tobacco use Cigarette Smoker [facility] Start: 09-12-2018 End: 12-13-2022 Cigarettes smoked current (pack per day) - Reported 1 [facility] Work Phone: Start: 09-12-2018 End: 11-19-2022 Tobacco use and exposure User of smokeless tobacco [facility] History of tobacco use Snuff User [facility] Start: 01-03-2020 End: 04-27-2023 Alcohol intake Current drinker of alcohol (finding) [facility] Start: 09-12-2018 History SDOH Alcohol Comment 3 to 4 times a week [facility] Start: 07-17-2012 Tobacco Comment Patient is usi ng smokeless tobacco and electronic cigarette to help quit smoking [facility] Start: 1980 Sex Assigned At Not on file C [facility] Start: 11-19-2022 Tobacco smoking stat us ARIS Ex-smoker [facility] Work Phone: End: 06-08-2017 History of tobacco use Current smoker [facility] Work Phone: Start: 11-19-2022 Tobacco Comment Currently usin g nicotine pouches to quit [facility] Start: 11-19-2022 Alcohol Comment 4-5 times a we ek, 2 drinks per night [facility] Start: 12-13-2022 End: 04-27-2023 Tobacco use panel [facility] Work Phone: Adult Depression Screening Assessment 0 [facility] Work Phone: Clinical Notes 03-22-2022 to 07-19-2023 Trav Roger APRN.JOSE - 04/27/2023 2:52 PM Krystal Araiza - 12/23/2022 2:09 PM Milli León LPN - 12/13/2022 12:09 PM EDTMcresencio Nicholson - 12/13/2022 12:02 PM EDTPatient Instructions Note Date & Type Note Facility 07-19-2023 Note HNO ID: [id number] Author: Gilberto Rosenthal APRN.JOSE Service: ? Author Type: Nurse Practitioner Type: Progress Notes Filed: 07/19/2023 1:29 PM Note Text: Subjective HPI HPI Sabina Roe is a 42 year old male who presents today for CC of cough. This started 1 month ago, now having rib pain. Has tried otc medication for relief. Symptoms are worsened by nothing. Risk factors ex smoker. Hx of PE, not on current treatment. .Patient presents with: Cough: Cough x 1 month and now right rib pain x 1 day PAST MEDICAL HISTORY Diagnosis Date Pulmonary embolism (HCC) 2011 2 episodes, no cause identified PAST SURGICAL HISTORY Procedure Laterality Date VASECTOMY UNI/BI SPX W/POSTOP SEMEN EXAMS 2004 ALLERGIES Patient has no known allergies. MEDICATIONS No prescriptions on file. FAMILY HISTORY Problem Relation Age of Onset None Mother other (brain aneurysm) Mother None Father None Sister None Brother Heart Paternal Grandmother [place] Social History Tobacco Use Smoking status: Former Packs/day: 1.00 Years: 19.00 Additional pack years: 0.00 Total pack years: 19.00 Types: Cigarettes Quit date: 06/08/2017 Years since quittin.1 Smokeless tobacco: Current Types: Snuff Tobacco comments: Currently using nicotine pouches to quit Vaping Use Vaping Use: Former Substance Use Topics Alcohol use: Yes Comment: 4-5 times a week, 2 drinks per night Drug use: No Review of Systems HENT: Negative for congestion and sinus pain. Respiratory: Positive for cough. Negative for hemoptysis, sputum production, shortness of breath and wheezing. Cardiovascular: Negative for chest pain. Objective Blood pressure 124/80, pulse 68, temperature 36.7 ?C (98.1 ?F), temperature source Tympanic, resp. rate 16, weight 72.1 kg (159 lb), SpO2 99 %. Physical Exam Constitutional: General: He is not in acute distress. Appearance: He is not toxic-appearing or diaphoretic. HENT: Head: Normocephalic and atraumatic. Cardiovascular: Rate and Rhythm: Normal rate and regular rhythm. Heart sounds: Normal heart sounds, S1 normal and S2 normal. Pulmonary: Effort: Pulmonary effort is normal. Breath sounds: Wheezing (fine, scattered bilat) present. No decreased breath sounds or rhonchi. Chest: Lymphadenopathy: Cervical: No cervical adenopathy. Right cervical: No superficial cervical adenopathy. Left cervical: No superficial cervical adenopathy. Neurological: Mental Status: He is alert and oriented to person, place, and time. Gait: Gait is intact. ASSESSMENT/PLAN: 1. Subacute cough - ICD9: 786.2, ICD10: R05.2 (primary diagnosis) Suspect post viral cough -use medication as prescribed -follow up if symptoms persist, worsen, change - XR CHEST 2V FRONTAL/LAT IMPRESSION: No acute significant radiographic abnormality. No acute displaced right rib fracture identified. Dictated by : HENRRY MARTINEZ MD - PREDNISONE 20 MG TABLET - ALBUTEROL SULFATE HFA 90 MCG/ACTUATION AEROSOL INHALER 2. Rib pain on right side - ICD9: 786.50, ICD10: R07.81 Xray negative -use medication as prescribed -follow up if symptoms persist, worsen, change -If you experience chest pain/shortness of breath go to ER -suspect costocondritis vs minimally displaced rib. - XR RIBS 2V AP/OBL RIGHT - PREDNISONE 20 MG TABLET 3. Wheezing - ICD9: 786.07, ICD10: R06.2 Order steroids and inhaler -use medication as prescribed -follow up if symptoms persist, worsen, change - PREDNISONE 20 MG TABLET - ALBUTEROL SULFATE HFA 90 MCG/ACTUATION AEROSOL INHALER Gilberto Rosenthal APRN.CNP [facility] 07-19-2023 Note HNO ID: [id number] Author: Enedina Kaur RT(R) Service: Radiology Author Type: Technologist Type: Progress Notes Filed: 07/19/2023 12:30 PM Note Text: Radiology Service Progress Note PATIENT NAME: Sabina Roe DATE OF SERVICE: July 19, 2023 TIME: 12:16 PM PATIENT IDENTITY VERIFICATION COMPLETED USING TWO (2) IDENTIFIERS: Name and Date of confirmed by patient verbally. FALL SCREENING: Has the patient had 2 falls in the last year or 1 fall with injury or currently using an Ambulatory Assistive Device (Walker, Cane, Wheelchair, Crutches, etc.)? No PATIENT GENDER DATA: Male PATIENT RELEVANT IMPLANT DATA REVIEWED: Yes RADIOLOGY DEPARTMENT: General X-ray: Exam(s) Completed: Chest X-Ray Rib X-Ray: Right PERIPHERAL IV DATA: Not applicable SIGNED BY: RT Ruby(R) July 19, 2023 12:16 PM [facility] 04-27-2023 Note HNO ID: [id number] Author: Trav Roger APRN.CNP Service: ? Author Type: Nurse Practitioner Type: Progress Notes Filed: 04/27/2023 4:16 PM Note Text: This note was created using NoteWriter. Subjective Sabina Roe is a 42 year old male. 42 year old male with PMH PE presents for illness. Acute onset today +feeling fatigued and weak +sweaty +loose stools +cough Denies N/V Denies fever or chills. He does make note that he was sick with a cough and congestion 3 weeks ago. He states think it's a continuation However, he also states he felt better for several days prior to today's symptoms. +tobacco smoker. Endorses he was sent home from work. The history is provided by the patient. No automotive parts interpreter was used. Flu Like Symptoms This is a new problem. The current episode started today. The problem occurs constantly. The problem has been unchanged. Associated symptoms include chills, fatigue, a fever, myalgias and weakness. Pertinent negatives include no abdominal pain, anorexia, arthralgias, change in bowel habit, chest pain, congestion, coughing, diaphoresis, headaches, joint swelling, nausea, neck pain, numbness, rash, sore throat, swollen glands, urinary symptoms, vertigo, visual change or vomiting. Nothing aggravates the symptoms. He has tried nothing for the symptoms. The treatment provided no relief. PAST MEDICAL HISTORY Diagnosis Date Pulmonary embolism (HCC) 2011 2 episodes, no cause identified PAST SURGICAL HISTORY Procedure Laterality Date VASECTOMY UNI/BI SPX W/POSTOP SEMEN EXAMS 2004 ALLERGIES Patient has no known allergies. MEDICATIONS No prescriptions on file. FAMILY HISTORY Problem Relation Age of Onset None Mother other (brain aneurysm) Mother None Father None Sister None Brother Heart Paternal Grandmother [place] Social History Tobacco Use Smoking status: Former Packs/day: 1.00 Years: 19.00 Additional pack years: 0.00 Total pack years: 19.00 Types: Cigarettes Quit date: 06/08/2017 Years since quittin.8 Smokeless tobacco: Current Types: Snuff Tobacco comments: Currently using nicotine pouches to quit Vaping Use Vaping Use: Former Substance Use Topics Alcohol use: Yes Comment: 4-5 times a week, 2 drinks per night Drug use: No Review of Systems Constitutional: Positive for chills, fatigue and fever. Negative for diaphoresis. HENT: Negative for congestion and sore throat. Eyes: Negative for pain, discharge, redness and itching. Respiratory: Negative for apnea, cough, choking and chest tightness. Cardiovascular: Negative for chest pain. Gastrointestinal: Negative for abdominal pain, anorexia, change in bowel habit, nausea and vomiting. Musculoskeletal: Positive for myalgias. Negative for arthralgias, joint swelling and neck pain. Skin: Negative for rash. Allergic/Immunologic: Negative for environmental allergies, food allergies and immunocompromised state. Neurological: Positive for weakness. Negative for vertigo, numbness and headaches. Hematological: Negative for adenopathy. Does not bruise/bleed easily. Psychiatric/Behavioral: Negative for agitation and behavioral problems. Objective BP 122/80 Pulse 76 Temp 37.1 ?C (98.8 ?F) (Tympanic) Resp 16 Wt 69.2 kg (152 lb 9.6 oz) SpO2 98% BMI 25.39 kg/m? Physical Exam Vitals and nursing note reviewed. Constitutional: General: He is not in acute distress. Appearance: Normal appearance. He is not ill-appearing, toxic-appearing or diaphoretic. HENT: Head: Normocephalic and atraumatic. Right Ear: External ear normal. Left Ear: External ear normal. Nose: Nose normal. No congestion or rhinorrhea. Mouth/Throat: Mouth: Mucous membranes are moist. Pharynx: Oropharynx is clear. No oropharyngeal exudate or posterior oropharyngeal erythema. Eyes: General: Right eye: No discharge. Left eye: No discharge. Extraocular Movements: Extraocular movements intact. Conjunctiva/sclera: Conjunctivae normal. Pupils: Pupils are equal, round, and reactive to light. Cardiovascular: Rate and Rhythm: Normal rate and regular rhythm. Pulses: Normal pulses. Heart sounds: Normal heart sounds. No murmur heard. No friction rub. No gallop. Pulmonary: Effort: Pulmonary effort is normal. No respiratory distress. Breath sounds: Normal breath sounds. No stridor. No wheezing, rhonchi or rales. Chest: Chest wall: No tenderness. Abdominal: General: Abdomen is flat. There is no distension. Palpations: Abdomen is soft. There is no mass. Tenderness: There is no abdominal tenderness. There is no guarding or rebound. Hernia: No hernia is present. Musculoskeletal: General: No swelling, tenderness, deformity or signs of injury. Normal range of motion. Cervical back: Normal range of motion and neck supple. No rigidity or tenderness. Right lower leg: No edema. Left lower leg: No edema. Lymphadenopathy: Cervi (more content not included)... [facility] 04-27-2023 History of Presen t illness Narrative This note was created using NoteWriter. Subjective Sabina Roe is a 42 year old male. 42 year old male with PMH PE presents for illness. Acute onset today +feeling fatigued and weak +sweaty +loose stools +cough Denies N/V Denies fever or chills. He does make note that he was sick with a cough and congestion 3 weeks ago. He states think it's a continuation However, he also states he felt better for several days prior to today's symptoms. +tobacco smoker. Endorses he was sent home from work. The history is provided by the patient. No automotive parts interpreter was used. Flu Like Symptoms This is a new problem. The current episode started today. The problem occurs constantly. The problem has been unchanged. Associated symptoms include chills, fatigue, a fever, myalgias and weakness. Pertinent negatives include no abdominal pain, anorexia, arthralgias, change in bowel habit, chest pain, congestion, coughing, diaphoresis, headaches, joint swelling, nausea, neck pain, numbness, rash, sore throat, swollen glands, urinary symptoms, vertigo, visual change or vomiting. Nothing aggravates the symptoms. He has tried nothing for the symptoms. The treatment provided no relief. PAST MEDICAL HISTORY Diagnosis Date Pulmonary embolism (HCC) 2011 2 episodes, no cause identified PAST SURGICAL HISTORY Procedure Laterality Date VASECTOMY UNI/BI SPX W/POSTOP SEMEN EXAMS 2004 ALLERGIES Patient has no known allergies. MEDICATIONS No prescriptions on file. FAMILY HISTORY Problem Relation Age of Onset None Mother other (brain aneurysm) Mother None Father None Sister None Brother Heart Paternal Grandmother [place] Social History Tobacco Use Smoking status: Former Packs/day: 1.00 Years: 19.00 Additional pack years: 0.00 Total pack years: 19.00 Types: Cigarettes Quit date: 06/08/2017 Years since quittin.8 Smokeless tobacco: Current Types: Snuff Tobacco comments: Currently using nicotine pouches to quit Vaping Use Vaping Use: Former Substance Use Topics Alcohol use: Yes Comment: 4-5 times a week, 2 drinks per night Drug use: No Review of Systems Constitutional: Positive for chills, fatigue and fever. Negative for diaphoresis. HENT: Negative for congestion and sore throat. Eyes: Negative for pain, discharge, redness and itching. Respiratory: Negative for apnea, cough, choking and chest tightness. Cardiovascular: Negative for chest pain. Gastrointestinal: Negative for abdominal pain, anorexia, change in bowel habit, nausea and vomiting. Musculoskeletal: Positive for myalgias. Negative for arthralgias, joint swelling and neck pain. Skin: Negative for rash. Allergic/Immunologic: Negative for environmental allergies, food allergies and immunocompromised state. Neurological: Positive for weakness. Negative for vertigo, numbness and headaches. Hematological: Negative for adenopathy. Does not bruise/bleed easily. Psychiatric/Behavioral: Negative for agitation and behavioral problems. Objective BP 122/80 Pulse 76 Temp 37.1 C (98.8 F) (Tympanic) Resp 16 Wt 69.2 kg (152 lb 9.6 oz) SpO2 98% BMI 25.39 kg/m Physical Exam Vitals and nursing note reviewed. Constitutional: General: He is not in acute distress. Appearance: Normal appearance. He is not ill-appearing, toxic-appearing or diaphoretic. HENT: Head: Normocephalic and atraumatic. Right Ear: External ear normal. Left Ear: External ear normal. Nose: Nose normal. No congestion or rhinorrhea. Mouth/Throat: Mouth: Mucous membranes are moist. Pharynx: Oropharynx is clear. No oropharyngeal exudate or posterior oropharyngeal erythema. Eyes: General: Right eye: No discharge. Left eye: No discharge. Extraocular Movements: Extraocular movements intact. Conjunctiva/sclera: Conjunctivae normal. Pupils: Pupils are equal, round, and reactive to light. Cardiovascular: Rate and Rhythm: Normal rate and regular rhythm. Pulses: Normal pulses. Heart sounds: Normal heart sounds. No murmur heard. No friction rub. No gallop. Pulmonary: Effort: Pulmonary effort is normal. No respiratory distress. Breath sounds: Normal breath sounds. No stridor. No wheezing, rhonchi or rales. Chest: Chest wall: No tenderness. Abdominal: General: Abdomen is flat. There is no distension. Palpations: Abdomen is soft. There is no mass. Tenderness: There is no abdominal tenderness. There is no guarding or rebound. Hernia: No hernia is present. Musculoskeletal: General: No swelling, tenderness, deformity or signs of injury. Normal range of motion. Cervical back: Normal range of motion and neck supple. No rigidity or tenderness. Right lower leg: No edema. Left lower leg: No edema. Lymphadenopathy: Cervical: No cervical adenopathy. Skin: General: Skin is warm and dry. Capillary Refill: Capillary refill takes less than 2 seconds. Coloration: Skin is not jaundiced or pale. Findings: No bruising, lesion or rash. Neurological: General: No focal deficit present. Mental Status: He is alert and oriented to person, place, and time. Cranial Nerves: No cranial nerve deficit. Sensory: No sensory deficit. Motor: No weakness. Coordination: Coordination normal. Gait: Gait normal. Deep Tendon Reflexes: Reflexes normal. Psychiatric: Mood and Affect: Mood normal. Behavior: Behavior normal. Thought Content: Thought content normal. Assessment and Plan ASSESSMENT/PLAN: 1. URI, acute - ICD9: 465.9, ICD10: J06.9 Acute onset today - Discussed viral etiology and rationale for treatment. - Group A strep molecular testing negative - Symptomatic treatment with prn analgesia - Supportive care with fluids and rest - The patient may also use OTC cough and cold meds as needed and warm salt water gargles, throat lozenges and/or OTC throat spray as needed. - Follow up in 3-5 days if symptoms persist or sooner if worsening of symptoms - COVID & INFLUENZA A/B & RSV NAAT, ROUTINE-obtained and pending - COVID NAAT, ROUTINE - ROUTINE FLU A/B + RSV Trav Roger APRN.DIAMOND DIE POLISHER documented in this encounter [facility] 12-28-2022 Note HNO ID: [id number] Author: Trav Araiza Service: ? Author Type: ? Type: Progress Notes Filed: 12/28/2022 2:11 PM Note Text: POPULATION HEALTH NAVIGATION OUTREACH Action/FYI RP OUTREACH: LVM for Patient to call [phone] to schedule PT Consult Patient Identified by Name and : NO Outreach Outcome/Action Unable to reach patient: Left message Did you use a PCP flex slot to schedule this appointment? No Reason for Outreach Care Gap or Scheduling/Wellness visits Payer: Payor: ANTHEM / Plan: BLUE CARD PPO OOS / Product Type: PPO / Care Gap Reviewed:: N/A Reminder: Reminder note to check Health Maintenance for items below Health Maintenance items due: There are no preventive care reminders to display for this patient. Navigation Signature: Trav Araiza December 28, 2022 2:11 PM [facility] [place] 12-28-2022 Note Patient Outreach (NE TNAV) JYOTHISABINA ([id number]) 1980 M Date Time Provider Department 12/28/22 NO PCP NETNAV During your visit today, we recorded the following information about you: Trav Araiza 12/28/2022 2:11 PM Signed POPULATION HEALTH NAVIGATION OUTREACH Action/I RP OUTREACH: LVM for Patient to call [phone] to schedule PT Consult Patient Identified by Name and : NO Outreach Outcome/Action Unable to reach patient: Left message Did you use a PCP flex slot to schedule this appointment? No Reason for Outreach Care Gap or Scheduling/Wellness visits Payer: Payor: YANDEL / Plan: BLUE CARD PPO OOS / Product Type: PPO / Care Gap Reviewed:: N/A Reminder: Reminder note to check Health Maintenance for items below Health Maintenance items due: There are no preventive care reminders to display for this patient. Navigation Signature: Trav Araiza December 28, 2022 2:11 PM Allergies As of Date: 12/28/2022 (No Known Allergies) Date Reviewed: 12/13/2022 Reviewed by: Lyric León LPN - Fully Assessed Meds Comments as of 11/16/2016: Carlos Badillo Problem List As Of Date 12/28/2022 Noted Resolved Tobacco use disorder [F17.200] 05/20/2010 PE (pulmonary embolism) [I26.99] 07/17/2012 Encounter Status:Closed by TRAV ARAIZA on 12/28/22 [facility] [place] [facility] [place] 12-23-2022 Note HNO ID: [id number] Author: Trav Araiza Service: ? Author Type: ? Type: Progress Notes Filed: 12/23/2022 2:10 PM Note Text: POPULATION HEALTH NAVIGATION OUTREACH Action/I RP OUTREACH: LVM for Patient to call [phone] to schedule PT Consult Patient Identified by Name and : NO Outreach Outcome/Action Unable to reach patient: Left message Did you use a PCP flex slot to schedule this appointment? No Reason for Outreach Care Gap or Scheduling/Wellness visits Payer: Payor: YANDEL / Plan: BLUE CARD PPO OOS / Product Type: PPO / Care Gap Reviewed:: N/A Reminder: Reminder note to check Health Maintenance for items below Health Maintenance items due: There are no preventive care reminders to display for this patient. Navigation Signature: Trav Araiza December 23, 2022 2:09 PM [facility] [place] [facility] [place] 12-23-2022 History of Presen t illness Narrative POPULATION HEALTH NAVIGATION OUTREACH Action/FYI RP OUTREACH: LVM for Patient to call [phone] to schedule PT Consult Patient Identified by Name and : NO Outreach Outcome/Action Unable to reach patient: Left message Did you use a PCP flex slot to schedule this appointment? No Reason for Outreach Care Gap or Scheduling/Wellness visits Payer: Payor: YANDEL / Plan: BLUE CARD PPO OOS / Product Type: PPO / Care Gap Reviewed:: N/A Reminder: Reminder note to check Health Maintenance for items below Health Maintenance items due: There are no preventive care reminders to display for this patient. Navigation Signature: Trav Araiza December 23, 2022 2:09 PM documented in this encounter [facility] 12-23-2022 Note Patient Outreach (NE TNAV) SABINA ROE ([id number]) 1980 M Date Time Provider Department 12/23/22 NO PCP NETNAV During your visit today, we recorded the following information about you: Trav Araiza 12/23/2022 2:10 PM Signed POPULATION HEALTH NAVIGATION OUTREACH Action/FYI RP OUTREACH: LVM for Patient to call [phone] to schedule PT Consult Patient Identified by Name and : NO Outreach Outcome/Action Unable to reach patient: Left message Did you use a PCP flex slot to schedule this appointment? No Reason for Outreach Care Gap or Scheduling/Wellness visits Payer: Payor: YANDEL / Plan: BLUE CARD PPO OOS / Product Type: PPO / Care Gap Reviewed:: N/A Reminder: Reminder note to check Health Maintenance for items below Health Maintenance items due: There are no preventive care reminders to display for this patient. Navigation Signature: Trav Araiza December 23, 2022 2:09 PM Allergies As of Date: 12/23/2022 (No Known Allergies) Date Reviewed: 12/13/2022 Reviewed by: Lyric León LPN - Fully Assessed Meds Comments as of 11/16/2016: Shonna-Amber Aby Problem List As Of Date 12/23/2022 Noted Resolved Tobacco use disorder [F17.200] 05/20/2010 PE (pulmonary embolism) [I26.99] 07/17/2012 Encounter Status:Closed by TRAV ARAIZA on 12/23/22 [facility] [place] [facility] [place] 12-13-2022 Note HNO ID: [id number] Author: Lyric León LPN Service: ? Author Type: LICENSED NURSE Type: Progress Notes Filed: 12/13/2022 12:58 PM Note Text: Per Dr. Nicholson, Sabina was provided with powerstep original inserts, size 8.5, and instructed/educated in its application, wear, and care. All questions were answered, and patient was able to demonstrate competence with the necessary skills to utilize the above equipment. Lyric León LPN [facility] [place] [facility] [place] 12-13-2022 Note HNO ID: [id number] Author: Bettina Nicholson Service: ? Author Type: Physician Type: Progress Notes Filed: 12/13/2022 12:58 PM Note Text: Consultation requested by Dr. Anton for an opinion regarding b/l heel pain. My final recommendations will be communicated back to the requesting physician by way of shared Medical record or letter to requesting physician via US mail. Initial Podiatric Office Visit: Chief Complaint: This 42 year old male who presents with chief complaint:b/l heel pain HPI Patient presents to clinic for evaluation of b/l foot He has pain in both heels, worse at night when he is trying to sleep Patient does not really do anything for the pain. PAIN EVALUATION 12/13/2022 1133 Pain Level: 7 7-8 at night; 2-3 in office Pain Location: Other: See Comment bilateral feet Description: Dull;Aching Duration Amount of Time: 2 Duration Units: Months Frequency: Continuous Intervention/Comfort measure: Reposition;Relaxation Hemoglobin A1C (%) Date Value 11/19/2022 5.3 PCP: Aurora Anton APRN.CNP PAST MEDICAL HISTORY Diagnosis Date Pulmonary embolism (HCC) 2011 2 episodes, no cause identified No current outpatient medications on file. No current facility-administered medications for this visit. ALLERGIES No Known Allergies PAST SURGICAL HISTORY Procedure Laterality Date VASECTOMY UNI/BI SPX W/POSTOP SEMEN EXAMS 2004 FAMILY HISTORY Problem Relation Age of Onset None Mother other (brain aneurysm) Mother None Father None Sister None Brother Heart Paternal Grandmother [place] Social History Tobacco Use Smoking status: Former Packs/day: 1.00 Years: 19.00 Pack years: 19.00 Types: Cigarettes Quit date: 06/08/2017 Years since quittin.5 Smokeless tobacco: Current Types: Snuff Tobacco comments: Currently using nicotine pouches to quit Vaping Use Vaping Use: Former Substance Use Topics Alcohol use: Yes Comment: 4-5 times a week, 2 drinks per night Drug use: No REVIEW OF SYSTEMS GENERAL: Negative for Malaise, significant weight loss, fever RESPIRATORY: Negative for cough, wheezing and shortness of breath CARDIOVASCULAR: Negative for chest pain, leg swelling and palpitations GI: Negative for abdominal discomfort, blood in stools or black stools and change in bowel habits : Negative for dysuria, frequency and incontinence MUSCULOSKELETAL: Negative for joint pain or swelling, back pain, and muscle pain. SKIN: Negative for lesions, rash, and itching. HEMATOLOGY/LYMPHOLOGY Negative for prolonged bleeding, bruising easily, and swollen nodes. ENDOCRINE: Negative for cold or heat intolerance, polyuria, polydipsia and goiter. NEURO: negative Physical Exam: Constitutional: Pt is a well developed 42 year old male who is alert, oriented and cooperative Eyes: Following during examination. No redness or drainage. Respiratory: RR normal and nonlabored. Even breathing. No evidence of distress or shortness of breath. Psychology: Patient is engaged during conversation. Normal affect and mood. Does not appear depressed or anxious during encounter. Vascular: Dorsalis pedis and posterior tibial pulses palpable as b/l Capillary Fill time < 5 seconds to digits 1-5 b/l Skin temperature warm to warm proximal to distal b/l Hair growth present to digits Neurological: intact light touch/epicritic sensation b/l intact protective sensation no significant neurological deficits Dermatological: Nails 1-5 b/l appear normal. Webspaces clean and dry 1-4 b/l. Skin appears well hydrated and supple. good color, texture, turgor. No open lesions present. No callosities present. Musculoskeletal/Orthopaedic: Patient has pain to palpation of b/l achilles tendon Foot type is pronated structurally AJ ROM is full with knee extended and flexed 1st MPJ is full when loaded and no pain or crepitus are noted with ROM. MTJ, STJ are full and free of pain and crepitus. +5/5 muscle strength dorsiflexion, plantarflexion, inversion, eversion b/l Radiographs: 3 views b/l foot ordered December 13, 2022: I have personally reviewed and interpreted these XR myself: no acute fracture ASSESSMENT: (M76.61, M76.62) Achilles tendonitis, bilateral (primary encounter diagnosis) (M79.671, M79.672) Foot pain, bilateral (M21.41, M21.42) Pes planus of both feet PLAN: 1. History and physical examination performed. 2. XR reviewed with patient and interpreted today 3. Suspect component of achilles tendonitis due to flatfoot. Recommend he try powerstep inserts. Also recommend gastroc stretching. 4. If powerstep inserts help, could consider custom inserts Bettina Nicholson DPM Podiatry [address] [facility] [address] Dept: [phone] Dept [facility] [place] [facility] [place] 12-13-2022 Note HNO ID: [id number] Author: Lyric León LPN Service: ? Author Type: LICENSED NURSE Type: Progress Notes Filed: 12/13/2022 12:58 PM Note Text: AMB ROOMING INTAKE FLOWSHEET DATA Pain Pain Level: 7 (7-8 at night; 2-3 in office) Pain Location: Other: See Comment (bilateral feet) Description: Dull, Aching Duration Amount of Time: 2 Duration Units: Months Frequency: Continuous Intervention/Comfort measure: Reposition, Relaxation Patient presents with: Left Foot - New, Pain Right Foot - New, Pain Lyric León LPN [facility] [place] [facility] [place] 12-13-2022 History of Presen t illness Narrative Per Dr. Nicholson, Sabina was provided with powerstep original inserts, size 8.5, and instructed/educated in its application, wear, and care. All questions were answered, and patient was able to demonstrate competence with the necessary skills to utilize the above equipment. Lyric León LPN Images from the original note were not included. Consultation requested by Dr. Anton for an opinion regarding b/l heel pain. My final recommendations will be communicated back to the requesting physician by way of shared Medical record or letter to requesting physician via US mail. Initial Podiatric Office Visit: Chief Complaint: This 42 year old male who presents with chief complaint:b/l heel pain HPI Patient presents to clinic for evaluation of b/l foot He has pain in both heels, worse at night when he is trying to sleep Patient does not really do anything for the pain. PAIN EVALUATION 12/13/2022 1133 Pain Level: 7 7-8 at night; 2-3 in office Pain Location: Other: See Comment bilateral feet Description: Dull;Aching Duration Amount of Time: 2 Duration Units: Months Frequency: Continuous Intervention/Comfort measure: Reposition;Relaxation Hemoglobin A1C (%) Date Value 11/19/2022 5.3 PCP: Aurora Anton APRN.[employer] PAST MEDICAL HISTORY Diagnosis Date Pulmonary embolism (HCC) 2011 2 episodes, no cause identified No current outpatient medications on file. No current facility-administered medications for this visit. ALLERGIES No Known Allergies PAST SURGICAL HISTORY Procedure Laterality Date VASECTOMY UNI/BI SPX W/POSTOP SEMEN EXAMS 2004 FAMILY HISTORY Problem Relation Age of Onset None Mother other (brain aneurysm) Mother None Father None Sister None Brother Heart Paternal Grandmother [place] Social History Tobacco Use Smoking status: Former Packs/day: 1.00 Years: 19.00 Pack years: 19.00 Types: Cigarettes Quit date: 06/08/2017 Years since quittin.5 Smokeless tobacco: Current Types: Snuff Tobacco comments: Currently using nicotine pouches to quit Vaping Use Vaping Use: Former Substance Use Topics Alcohol use: Yes Comment: 4-5 times a week, 2 drinks per night Drug use: No REVIEW OF SYSTEMS GENERAL: Negative for Malaise, significant weight loss, fever RESPIRATORY: Negative for cough, wheezing and shortness of breath CARDIOVASCULAR: Negative for chest pain, leg swelling and palpitations GI: Negative for abdominal discomfort, blood in stools or black stools and change in bowel habits : Negative for dysuria, frequency and incontinence MUSCULOSKELETAL: Negative for joint pain or swelling, back pain, and muscle pain. SKIN: Negative for lesions, rash, and itching. HEMATOLOGY/LYMPHOLOGY Negative for prolonged bleeding, bruising easily, and swollen nodes. ENDOCRINE: Negative for cold or heat intolerance, polyuria, polydipsia and goiter. NEURO: negative Physical Exam: Constitutional: Pt is a well developed 42 year old male who is alert, oriented and cooperative Eyes: Following during examination. No redness or drainage. Respiratory: RR normal and nonlabored. Even breathing. No evidence of distress or shortness of breath. Psychology: Patient is engaged during conversation. Normal affect and mood. Does not appear depressed or anxious during encounter. Vascular: Dorsalis pedis and posterior tibial pulses palpable as b/l Capillary Fill time < 5 seconds to digits 1-5 b/l Skin temperature warm to warm proximal to distal b/l Hair growth present to digits Neurological: intact light touch/epicritic sensation b/l intact protective sensation no significant neurological deficits Dermatological: Nails 1-5 b/l appear normal. Webspaces clean and dry 1-4 b/l. Skin appears well hydrated and supple. good color, texture, turgor. No open lesions present. No callosities present. Musculoskeletal/Orthopaedic: Patient has pain to palpation of b/l achilles tendon Foot type is pronated structurally AJ ROM is full with knee extended and flexed 1st MPJ is full when loaded and no pain or crepitus are noted with ROM. MTJ, STJ are full and free of pain and crepitus. +5/5 muscle strength dorsiflexion, plantarflexion, inversion, eversion b/l Radiographs: 3 views b/l foot ordered December 13, 2022: I have personally reviewed and interpreted these XR myself: no acute fracture ASSESSMENT: (M76.61, M76.62) Achilles tendonitis, bilateral (primary encounter diagnosis) (M79.671, M79.672) Foot pain, bilateral (M21.41, M21.42) Pes planus of both feet PLAN: 1. History and physical examination performed. 2. XR reviewed with patient and interpreted today 3. Suspect component of achilles tendonitis due to flatfoot. Recommend he try powerstep inserts. Also recommend gastroc stretching. 4. If powerstep inserts help, could consider custom inserts Bettina Nicholson DPM Podiatry [address] [facility] [address] Dept: [phone] Dept AMB ROOMING INTAKE FLOWSHEET DATA Pain Pain Level: 7 (7-8 at night; 2-3 in office) Pain Location: Other: See Comment (bilateral feet) Description: Dull, Aching Duration Amount of Time: 2 Duration Units: Months Frequency: Continuous Intervention/Comfort measure: Reposition, Relaxation Patient presents with: Left Foot - New, Pain Right Foot - New, Pain Lyric León LPN documented in this encounter [facility] 12-13-2022 Instructions Bettina Nicholson - 12/13/2022 12:06 PM EDT Powerstep Original Full length. Can purchase at [employer] here in [place], [employer] in [place] or [place]. Also can find in [employer] in [facility]. Powersteps can also be purchased online, starting around $25.00 If you have a metatarsal or dancer pad for your feet apply the pad directly to the insole so you can interchange between your shoes. Find a shoe with a removable insole and take this out and replace with your powerstep insole. Always bring powersteps with you when shopping for shoes so that you can make sure that everything fits well together documented in this encounter [facility] 11-22-2022 Miscellaneous Notes Pt notified of results and provider message. Pt reports he will think about doing PT. Deisy Rivas LPN Called and left a voicemail for the Patient to call back and ask for a nurse to receive the providers message. Simran Allen RN Please let patient know his cholesterol is elevated. I would like him to watch his fatty food and fried food intake and we will recheck this in 6 months. His hepatitis c and HIV screen are negative. His elbow xray is also negative. It is likely tendonitis and I would recommend PT. An order has been entered if patient wants to see if this helps. documented in this encounter [facility] 11-19-2022 Note HNO ID: [id number] Author: RT Lisbeth(Davi) Service: Nuclear Medicine Author Type: Technologist Type: Progress Notes Filed: 11/19/2022 11:07 AM Note Text: Radiology Service Progress Note PATIENT NAME: Sabina Roe DATE OF SERVICE: November 19, 2022 TIME: 10:51 AM PATIENT IDENTITY VERIFICATION COMPLETED USING TWO (2) IDENTIFIERS: Name and Date of confirmed by patient verbally. FALL SCREENING: Has the patient had 2 falls in the last year or 1 fall with injury or currently using an Ambulatory Assistive Device (Walker, Cane, Wheelchair, Crutches, etc.)? No PATIENT GENDER DATA: Male PATIENT RELEVANT IMPLANT DATA REVIEWED: Not Applicable RADIOLOGY DEPARTMENT: General X-ray: Exam(s) Completed: Lower Extremity X-Ray(s): Foot, Bilateral and Wt. Bearing Upper Extremity X-Ray(s): Elbow, right PERIPHERAL IV DATA: Not applicable SIGNED BY: RT Lisbeth(R) November 19, 2022 10:51 AM [facility] 11-19-2022 Note HNO ID: [id number] Author: Aurora Anton APRN.[employer] Service: ? Author Type: Nurse Practitioner Type: Progress Notes Filed: 11/19/2022 12:22 PM Note Text: Chief Complaint Patient presents with: Physical HPI Sabina Roe is a 42 year old male who presents here today for Above Complaints.. Patient is here to establish care. Patient states he was a patient of Dr. Watters but hasn't been seen in 4 years. Past medical history, appointments, medications, allergies reviewed. Previous Medical History PAST MEDICAL HISTORY Diagnosis Date Pulmonary embolism (HCC) 2011 2 episodes, no cause identified Previous Surgical History PAST SURGICAL HISTORY Procedure Laterality Date VASECTOMY UNI/BI SPX W/POSTOP SEMEN EXAMS 2004 Family History FAMILY HISTORY Problem Relation Age of Onset None Mother None Father None Sister None Brother Heart Paternal Grandmother [place] Patient Allergies ALLERGIES No Known Allergies Current Medications No current outpatient medications on file prior to visit. No current facility-administered medications on file prior to visit. Social History Social History Tobacco Use Smoking status: Some Days Packs/day: 1.00 Years: 19.00 Pack years: 19.00 Types: Cigarettes Last attempt to quit: 06/08/2017 Years since quittin.4 Smokeless tobacco: Current Types: Snuff Tobacco comments: Patient is using smokeless tobacco and electronic cigarette to help quit smoking Vaping Use Vaping Use: Never used Substance Use Topics Alcohol use: Yes Comment: 3 to 4 times a week Drug use: No Review of Symptoms REVIEW OF SYSTEMS GENERAL: No weight loss, malaise or fevers HEENT: Negative for frequent or significant headaches, No changes in hearing or vision, no nose bleeds or other nasal problems NECK: Negative for lumps, goiter, pain and significant neck swelling RESPIRATORY: Negative for cough, hemoptysis, wheezing, COPD, dyspnea or shortness of breath CARDIOVASCULAR: Negative for chest pain, leg swelling, hypertension, CHF or palpitations GI: No nausea, vomiting, or diarrhea : No history of dysuria, frequency or incontinence, reports taking longer to get an erection MUSCULOSKELETAL: joint pain or swelling SKIN: Negative for lesions, rash, and itching PSYCH: Negative for sleep disturbance, mood disorder and recent psychosocial stressors HEMATOLOGY/LYMPHOLOGY: Negative for prolonged bleeding, bruising easily or swollen nodes ENDOCRINE: Negative for cold or heat intolerance, polyuria, polydipsia and goiter NEURO: twitching and soreness in legs EXAM: BP 110/78 Pulse 64 Resp 16 Ht 165.1 cm (5' 5 ) Wt 70.8 kg (156 lb) BMI 25.96 kg/m? General Appearance: Well appearing, alert, in no acute distress, well-hydrated, well nourished.. Skin: Skin color, texture, turgor normal, no suspicious rashes or lesions. Neck: Supple, no adenopathy; thyroid symmetric, normal size, no bruits. Lungs: Lungs clear to auscultation. No wheezing, rhonchi, rales.. Heart: RRR without murmur, gallop, or rubs. No ectopy. Abdomen: Normal abdominal exam, Abdomen soft, non-tender. Bowel sounds normal. No masses, organomegaly. Musculoskeletal: No joint swelling, deformity, or tenderness. Peripheral Pulses: Normal. Neurologic: Gait normal. Reflexes normal and symmetric. Sensation grossly intact. Eye:swelling of right lower conjunctiva, no drainage noted Health Maintenance List HEPATITIS B(1 of 3 - 3-dose series) Never done PNEUMOCOCCAL(1 - PCV) Never done HEPATITIS C SCREENING Never done HIV SCREENING Never done COVID-19 VACCINE(3 - Booster for Pfizer series) due on 08/09/2021 DEPRESSION ASSESSMENT Never done INFLUENZA(1) due on 02/18/2023 LIPID SCREEN due on 09/12/2023 DTAP,TDAP,TD(2 - Td or Tdap) due on 04/13/2027 ASSESSMENT/PLAN: 1. Screening for HIV (human immunodeficiency virus) - ICD9: V73.89, ICD10: Z11.4 (primary diagnosis) - HIV 1 2 COMBO(AG/AB),WITH REFLEX TO DIFFERENTIATION 2. Wellness examination - ICD9: V70.0, ICD10: Z00.00 - Counseled on healthy diet and regular exercise - Discussed need for and benefit of weight loss. BMI 25.96 kg/(m2) - Smoking cessation encouraged; discussed risks to health and quitting strategies. Patient is ready to quit - Counseled on limiting alcohol intake to 2 drinks per day - Depression screening tool completed and reviewed with patient. Based on score and interview, patient is not at risk for depression and recommended no further intervention at this time. - Follow up for annual exam in one year - COMP METABOLIC PANEL - CBC + DIFF 3. Encounter for hepatitis C screening test for low risk patient - ICD9: V73.89, ICD10: Z11.59 - HEP C AB IA W/CONF SCRN 4. Encounter for lipid screening for cardiovascular disease - ICD9: V77.91, V81.2, ICD10: Z13.220, Z13.6 - LIPID PANEL BASIC 5. Screening for diabetes mellitus - ICD9: V77.1, ICD10: Z13.1 - HGB A1C 6. (more content not included)... [facility] [place] [facility] 11-19-2022 Instructions Aurora Anton APRN.CNP - 11/19/2022 10:26 AM EDT Complete labs Complete xray Schedule with podiatry Follow up in 1 year documented in this encounter [facility] 11-19-2022 History of Presen t illness Narrative Chief Complaint Patient presents with: Physical HPI Sabina Roe is a 42 year old male who presents here today for Above Complaints.. Patient is here to establish care. Patient states he was a patient of Dr. Watters but hasn't been seen in 4 years. Past medical history, appointments, medications, allergies reviewed. Previous Medical History PAST MEDICAL HISTORY Diagnosis Date Pulmonary embolism (HCC) 2011 2 episodes, no cause identified Previous Surgical History PAST SURGICAL HISTORY Procedure Laterality Date VASECTOMY UNI/BI SPX W/POSTOP SEMEN EXAMS 2004 Family History FAMILY HISTORY Problem Relation Age of Onset None Mother None Father None Sister None Brother Heart Paternal Grandmother [place] Patient Allergies ALLERGIES No Known Allergies Current Medications No current outpatient medications on file prior to visit. No current facility-administered medications on file prior to visit. Social History Social History Tobacco Use Smoking status: Some Days Packs/day: 1.00 Years: 19.00 Pack years: 19.00 Types: Cigarettes Last attempt to quit: 06/08/2017 Years since quittin.4 Smokeless tobacco: Current Types: Snuff Tobacco comments: Patient is using smokeless tobacco and electronic cigarette to help quit smoking Vaping Use Vaping Use: Never used Substance Use Topics Alcohol use: Yes Comment: 3 to 4 times a week Drug use: No Review of Symptoms REVIEW OF SYSTEMS GENERAL: No weight loss, malaise or fevers HEENT: Negative for frequent or significant headaches, No changes in hearing or vision, no nose bleeds or other nasal problems NECK: Negative for lumps, goiter, pain and significant neck swelling RESPIRATORY: Negative for cough, hemoptysis, wheezing, COPD, dyspnea or shortness of breath CARDIOVASCULAR: Negative for chest pain, leg swelling, hypertension, CHF or palpitations GI: No nausea, vomiting, or diarrhea : No history of dysuria, frequency or incontinence, reports taking longer to get an erection MUSCULOSKELETAL: joint pain or swelling SKIN: Negative for lesions, rash, and itching PSYCH: Negative for sleep disturbance, mood disorder and recent psychosocial stressors HEMATOLOGY/LYMPHOLOGY: Negative for prolonged bleeding, bruising easily or swollen nodes ENDOCRINE: Negative for cold or heat intolerance, polyuria, polydipsia and goiter NEURO: twitching and soreness in legs EXAM: BP 110/78 Pulse 64 Resp 16 Ht 165.1 cm (5' 5 ) Wt 70.8 kg (156 lb) BMI 25.96 kg/m General Appearance: Well appearing, alert, in no acute distress, well-hydrated, well nourished.. Skin: Skin color, texture, turgor normal, no suspicious rashes or lesions. Neck: Supple, no adenopathy; thyroid symmetric, normal size, no bruits. Lungs: Lungs clear to auscultation. No wheezing, rhonchi, rales.. Heart: RRR without murmur, gallop, or rubs. No ectopy. Abdomen: Normal abdominal exam, Abdomen soft, non-tender. Bowel sounds normal. No masses, organomegaly. Musculoskeletal: No joint swelling, deformity, or tenderness. Peripheral Pulses: Normal. Neurologic: Gait normal. Reflexes normal and symmetric. Sensation grossly intact. Eye:swelling of right lower conjunctiva, no drainage noted Health Maintenance List HEPATITIS B(1 of 3 - 3-dose series) Never done PNEUMOCOCCAL(1 - PCV) Never done HEPATITIS C SCREENING Never done HIV SCREENING Never done COVID-19 VACCINE(3 - Booster for Pfizer series) due on 08/09/2021 DEPRESSION ASSESSMENT Never done INFLUENZA(1) due on 02/18/2023 LIPID SCREEN due on 09/12/2023 DTAP,TDAP,TD(2 - Td or Tdap) due on 04/13/2027 ASSESSMENT/PLAN: 1. Screening for HIV (human immunodeficiency virus) - ICD9: V73.89, ICD10: Z11.4 (primary diagnosis) - HIV 1 2 COMBO(AG/AB),WITH REFLEX TO DIFFERENTIATION 2. Wellness examination - ICD9: V70.0, ICD10: Z00.00 - Counseled on healthy diet and regular exercise - Discussed need for and benefit of weight loss. BMI 25.96 kg/(m^2) - Smoking cessation encouraged; discussed risks to health and quitting strategies. Patient is ready to quit - Counseled on limiting alcohol intake to 2 drinks per day - Depression screening tool completed and reviewed with patient. Based on score and interview, patient is not at risk for depression and recommended no further intervention at this time. - Follow up for annual exam in one year - COMP METABOLIC PANEL - CBC + DIFF 3. Encounter for hepatitis C screening test for low risk patient - ICD9: V73.89, ICD10: Z11.59 - HEP C AB IA W/CONF SCRN 4. Encounter for lipid screening for cardiovascular disease - ICD9: V77.91, V81.2, ICD10: Z13.220, Z13.6 - LIPID PANEL BASIC 5. Screening for diabetes mellitus - ICD9: V77.1, ICD10: Z13.1 - HGB A1C 6. Muscle spasms of both lower extremities - ICD9: 728.85, ICD10: M62.838 - MAGNESIUM BLD - PHOSPHORUS INORGANIC 7. Foot pain, bilateral - ICD9: 729.5, ICD10: M79.671, M79.672 - XR FOOT GENERAL 3V AP/LAT/OBL BILATERAL - CONSULT TO PODIATRY 8. Right elbow pain - ICD9: 719.42, ICD10: M25.521 - XR ELBOW SPECIAL VIEWS AP/LAT/OTHER RIGHT Aurora Anton APRN.[employer] documented in this encounter [facility] 03-22-2022 History of Presen t illness Narrative Scan on 03/20/2022 12:00 AM by External Provider: Consultation - Emergency Medicine [facility] Naz Scott Ma documented in this encounter [facility] Diagnosis Right elbow pain- Primary Pain in joint, upper arm [facility] Diagnosis Achilles tendonitis, bilateral- Primary Foot pain, bilateral Pain in limb Pes planus of both feet [facility] Diagnosis URI, acute- Primary Acute upper respiratory infections of unspecified site documented in this encounter [facility] Summary Purpose Family History No Family History Records FoundNo Family History Records Found Advance Directives No Advanced Directives Records FoundNo Advanced Directives Records Found Reason for Referral Specialty Diagnoses / Procedures Referred By Contac t Referred To Contact Podiatry Diagnoses Foot pain, bilateral Procedures CONSULT TO PODIATRY OFFICE/OUTPATIENT [facility] 60-74 MINUTES Aurora Anton APRN.[employer] [address] [place] [address] Referral ID Status Reason Start Date Expiration Date Visits Requested Visits Authorized [id number] Authorized PCP Requested Referral 11/19/2022 11/19/2023 1 1 Specialty Diagnoses / Procedures Referred By Contac t Referred To Contact XR IMAGING Diagnoses Foot pain, bilateral Procedures XR FOOT GENERAL 3V AP/LAT/OBL BILATERAL RADEX FOOT COMPLETE MINIMUM 3 VIEWS Aurora Anton APRN.[employer] [address] [place] [address] Xr Imaging Referral ID Status Reason Start Date Expiration Date V isits Requested Visits Authorized [id number] Closed Auto-Generate d Referral 11/19/2022 12/19/2023 1 1 Specialty Diagnoses / Procedures Referred By Contac t Referred To Contact XR IMAGING Diagnoses Right elbow pain Procedures XR ELBOW SPECIAL VIEWS AP/LAT/OTHER RIGHT RADEX ELBOW COMPLETE MINIMUM 3 VIEWS Aurora Anton APRN.[employer] [address] [place] [address] Xr Imaging Referral ID Status Reason Start Date Expiration Date V isits Requested Visits Authorized [id number] Closed Auto-Generate d Referral 11/19/2022 12/19/2023 1 1 Specialty Diagnoses / Procedures Referred By Bora t Referred To Contact [facility] Diagnoses Right elbow pain Procedures CONSULT TO PHYSICAL THERAPY PHYSICAL THERAPY EVALUATION HIGH COMPLEX 45 MINS Aurora Anton APRN.[employer] [address] [place] [address] [facility] [address] [place] [address] Referral ID Status Reason Start Date Expiration Date Visits Requested Visits Authorized [id number] Pending Review Auto-Generat ed Referral 11/22/2022 11/22/2023 1 1 Additional Source Comments (unrecognized sect ion and content) No Status Records FoundNo Status Records Found INFORMATION SOURCE (unrecogn ized section and content) DATE CREATED AUTHOR AUTHOR'S ORGANIZ ATION 07/21/2023 [facility] Source Comments (unrecognize d section and content) In the event this informatio n is protected by the Federal Confidentiality of Alcohol and Drug Abuse Patient Records regulations: The Federal rules restrict any use of the information to criminally investigate or prosecute any alcohol or drug abuse patient.[facility] the event this information is protected by the Federal Confidentiality of Alcohol and Drug Abuse Patient Records regulations: The Federal rules restrict any use of the information to criminally investigate or prosecute any alcohol or drug abuse patient.[facility] the event this information is protected by the Federal Confidentiality of Alcohol and Drug Abuse Patient Records regulations: The Federal rules restrict any use of the information to criminally investigate or prosecute any alcohol or drug abuse patient.[facility] the event this information is protected by the Federal Confidentiality of Alcohol and Drug Abuse Patient Records regulations: The Federal rules restrict any use of the information to criminally investigate or prosecute any alcohol or drug abuse patient.[facility] the event this information is protected by the Federal Confidentiality of Alcohol and Drug Abuse Patient Records regulations: The Federal rules restrict any use of the information to criminally investigate or prosecute any alcohol or drug abuse patient.[facility] the event this information is protected by the Federal Confidentiality of Alcohol and Drug Abuse Patient Records regulations: The Federal rules restrict any use of the information to criminally investigate or prosecute any alcohol or drug abuse patient.[facility] Reason for Visit (unrecogniz ed section and content) Reason Comments Physical Reason Comments Results Reason Comments New Pain Specialty Diagnoses / Procedures Referred By Bora linton Referred To Contact Podiatry Diagnoses Foot pain, bilateral Procedures CONSULT TO PODIATRY OFFICE/OUTPATIENT NEW HIGH MDM 60-74 MINUTES Aurora Anton APRN.JOSE [address] [place] [id number] Referral ID Status Reason Start Date Expiration Date V isits Requested Visits Authorized [id number] Closed PCP Requested Referral 11/19/2022 11/19/2023 1 1 Reason Comments Cough Cough, congestion x 3 weeks and weak and fatigue x 1 day Care Teams (unrecognized sec tion and content) Electrical Prospecting Operator Relationship Specialty Start Date End Date Aurora Anton APRN.CNP [address] [place] [address] [phone] PCP - General Family Medicine 11/19/22 Electrical Prospecting Operator Relationship Specialty Start Date End Date Aurora Anton APRN.CNP [address] [place] [address] [id number] PCP - General Family Medicine 11/19/22 Electrical Prospecting Operator Relationship Specialty Start Date End Date Aurora Anton APRN.[employer] [address] [place] [address] [phone] PCP - General Family Medicine 11/19/22 Electrical Prospecting Operator Relationship Specialty Start Date End Date Aurora Anton APRN.[employer] [address] [place] [address] [id number] PCP - General Family Medicine 11/19/22 Electrical Prospecting Operator Relationship Specialty Start Date End Date Aurora Anton APRN.[employer] [address] [place] [address] [phone] PCP - General Family Medicine 11/19/22 FOR RECORDS PERTAINING TO PATIENTS WHO ARE OR HAVE BEEN ENROLLED IN A CHEMICAL DEPENDENCY/SUBSTANCEABUSE PROGRAM, SOME INFORMATION MAY BE OMITTED. This clinical summary was aggregated from multiple sources. Caution should be exercised in using it in the provision of clinical care. This summary normalizes information from multiple sources, and as a consequence, information in this document may materially change the coding, format and clinical context of patient data. In addition, data may be omitted in some cases. CLINICAL DECISIONS SHOULD BE BASED ON THE PRIMARY CLINICAL RECORDS. [facility] [employer] [facility]. provides no warranty or guarantee of the accuracy or completeness of information in this document.
[2023-08-18] MEDS: Ketorolac 15 MG/ML Vial IM (05:00)
--- NOTE | 2023-08-18 05:05 | EDS_ITS ---
HPI History of Present Illness Chief Complaint: Lower Extremity Injury Narrative Narrative: 42-year-old male with nontraumatic left calf pain. States started this evening. He states he was unable to sleep due to pain. Denies trying Tylenol, ibuprofen. He states he did use some ice which helped. While leaning back in the bed he flexes his knee and pulls his foot to his buttocks and states this is what I was sitting when it started to hurt. Points out some distal calf pain and proximal ankle pain as a result. Denies any other trauma. 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 He recently had a PE workup which was negative. Denies numbness or tingling. PFSH PFSH Medical History Pulmonary embolism Smoker Allergy/AdvReac Type Severity Reaction Status Date / Time No Known Allergies Allergy Verified 08/18/23 03:52 Social History Smoking Status: Former smoker ROS ROS ED Constitutional Constitutional ED: Denies chills, fever(s) or sweats Eyes Eyes: Denies blurry vision or change in vision ENT ENT ED: Denies ear pain or sore throat Cardiovascular Cardiovascular: Denies chest pain, palpitations or racing heartbeat Respiratory/Chest Respiratory/Chest: Denies cough, dyspnea or sputum Gastrointestinal Gastrointestinal: Denies abdominal pain, constipation, diarrhea, nausea or vomiting Genitourinary Genitourinary ED: Denies dysuria, hematuria or urinary frequency Musculoskeletal Musculoskeletal: Reports other Details: Left calf pain, left ankle pain ; Denies arthralgias, myalgias or neck pain Integumentary Denies abscess, Abrasions or rash Neurologic Neurologic: Denies headache(s), paresthesias or weakness Psychiatric Psychiatric: Denies anxiety, depression, suicidal ideation or suicidal thoughts Endocrine Endocrinology: Denies polydipsia or polyuria EXAM Physical Exam Const Vital Signs: 08/18/23 03:53 Temperature 97.8 F Temperature Source Temporal Pulse Rate 79 Respiratory Rate 17 Blood Pressure 143/96 H Blood Pressure Mean 111 Pulse Ox 98 Oxygen Delivery Method Room Air Positive well nourished General Appearance ED: NAD HEENT normocephalic and atraumatic Chest Wall inspection of chest normal Resp normal respiratory effort Cardio regular rate and regular rhythm Extremity normal to inspection Extremity Narrative: Calf of the left leg is nontender to palpation. There is no swelling. Compartments are soft. No cords palpated. Patient able to plantarflex and dorsiflex the left foot without any difficulty. Achilles tendon is intact. Flexion extension of the knee is maintained without any difficulty or pain. Full range of motion. No rashes, erythema, edema. Neuro oriented x3 and CN's II-XII intact bilaterally Sensorium / Orientation: alert Motor Exam: strength 5/5 throughout Psych mental status grossly normal Skin no wounds Lesions: no lesions MDM MDM MDM Narrative Medical decision making narrative: Patient presenting with left calf pain which is nontraumatic. He states he is concerned he has a history of PE was unprovoked although he has no sign of DVT on exam we will provide him with a prescription for an outpatient DVT study tomorrow. He was given a shot of Toradol here. I do not believe he needs any blood thinners overnight. We discussed x-rays but he does not feel he needs any as well. Discussed ice, heat, NSAIDs at home. Impression: 1. Left calf pain Lab Data Attestation: I reviewed the patient's lab results. Discharge Plan Triage Chief Complaint: Lower Extremity Injury ED Provider: Anthony Greenfield Dx/Rx/DC Orders Instructions: ED Muscle Strain, Extremity Other Ambulatory Orders: Venous Duplex US, Unilateral (Stat) Facility: [facility] - Location: [facility] Ordered By: Dr. Anthony Greenfield Primary Care Provider: Aurora Anton Referrals: Aurora Anton, [employer] [Primary Care Provider] - Disposition Disposition: Home, Self Care
== END 2023-08-18 05:08 | disposition home or self-care (01) ==
PROVIDERS: Emergency Provider Student in an Organized Health Care Education/Training Program; PCP Nurse Practitioner Family; Visit Provider Student in an Organized Health Care Education/Training Program
DX: M79.662 Pain in left lower leg (principal); Z87.891 Personal history of nicotine dependence; Z86.711 Personal history of pulmonary embolism
CPT/HCPCS: 96372; 99282

== ENCOUNTER → 2023-08-18 | Outpatient (CLI) | payer BC, SELFPAY ==
--- NOTE | 2023-08-18 12:47 | VDLE_ITS ---
Reason For Study: Left leg pain Procedure LEFT This is a venous duplex using B-mode, color GSV is normal. flow and spectral Doppler. CFV is compressible, spontaneous, phasic, Exam performed in department. competent, and demonstrates normal A preliminary report was called and/or faxed augmentation. to PCP: Sloane KIM. FV is compressible, spontaneous, phasic, competent and demonstrates normal augmentation. POP V is compressible, spontaneous, phasic, competent and demonstrates normal augmentation. T/P Trunk is compressible. PTV is compressible. LT PerV is compressible. VL/Venous Duplex US, Unilateral Interpretation Summary There is no evidence of left lower extremity deep vein thrombosis. Left great s aphenous vein appears patent and compressible segmentally. Ordering Physician: Anthony Greenfield Referring Physician: Aurora Acevedo Performed By: Brittani Granados RVT
--- OUTSIDE RECORDS SUMMARY | 2023-08-18 13:13 | XMS RPT_ITS | CCD ---
Author Name Unknown Address [address] [place] [address] Organization [facility] Care Team Providers Care Senior Mechanical Project Engineer Name Role Phone LORRI ASHLEY Unavailable Unavailable MONICA CRAWFORD Unavailable Unavailable Monica Crawford MD Primary Care Provider Sloane PROOFER.Aurora GARCIA Primary Care Provider AURORA ANTON Referring [...] 14:46-0400 Body temperature 98.8 [degF] Trav Roger PROOFER.JOSE Work Phone: [facility] 04-27-2023 14:46-0400 Body weight 69.22 kg Trav Roger PROOFER.JOSE Work Phone: [facility] 04-27-2023 14:46-0400 Diastolic blood pressure 80 mm[Hg] Trav Roger PROOFER.COUNTERINTELLIGENCE SPECIALIST Work Phone: [facility] 04-27-2023 14:46-0400 Heart rate 76 /min Trav Roger PROOFER.COUNTERINTELLIGENCE SPECIALIST Work Phone: [facility] 04-27-2023 14:46-0400 Respiratory rate 16 /min Trav Roger PROOFER.COUNTERINTELLIGENCE SPECIALIST Work Phone: [facility] 04-27-2023 14:46-0400 SaO2% (BldA) [Mass fraction] 98 % Trav Roger PROOFER.COUNTERINTELLIGENCE SPECIALIST Work Phone: [facility] 04-27-2023 14:46-0400 Systolic blood pressure 122 mm[Hg] Trav Roger PROOFER.COUNTERINTELLIGENCE SPECIALIST Work Phone: [facility] 11-19-2022 09:56-0400 Body height 165.1 cm Aurora Anton PROOFER.COUNTERINTELLIGENCE SPECIALIST Work Phone: [facility] 11-19-2022 09:56-0400 Body weight 70.76 kg Aurora Anton PROOFER.COUNTERINTELLIGENCE SPECIALIST Work Phone: [facility] 11-19-2022 09:56-0400 Diastolic blood pressure 78 mm[Hg] Aurora Anton PROOFER.COUNTERINTELLIGENCE SPECIALIST Work Phone: [facility] 11-19-2022 09:56-0400 Heart rate 64 /min Aurora Anton PROOFER.COUNTERINTELLIGENCE SPECIALIST Work Phone: [facility] 11-19-2022 09:56-0400 Respiratory rate 16 /min Aurora Anton PROOFER.COUNTERINTELLIGENCE SPECIALIST Work Phone: [facility] 11-19-2022 09:56-0400 Systolic blood pressure 110 mm[Hg] Aurora Anton PROOFER.COUNTERINTELLIGENCE SPECIALIST Work Phone: [facility] Encounters Encounter Date Encounter Type Care Provider Facility Start: 07-19-2023 End: 07-19-2023 ambulatory AURORA ANTON Facility:[facility] Start: 04-27-2023 End: 04-27-2023 ambulatory AURORA ANTON Facility:[facility] Start: 04-27-2023 End: 04-27-2023 Patient encounter procedure Trav Roger APRN.COUNTERINTELLIGENCE SPECIALIST Work Phone: [facility] Procedures Date Procedure Procedure Detail Performing Clinician Start: 09-12-2018 Adult depression screening assessment Monica Crawford MD Work Phone: Plan of Treatment Date Care Activity Detail Author Start: 11-20-2027 LIPID SCREEN LIPID SCREEN [facility] Start: 04-13-2027 Urine microalbumin profile DTAP,TDAP,TD (2 - Td or Tdap) [facility] Start: 09-12-2023 LIPID SCREEN LIPID SCREEN [facility] Start: 04-27-2023 End: 05-11-2023 COVID & INFLUENZA A/B & RSV NAAT, ROUTINE [facility] Work Phone: Immunizations Immunization Date Immunization Notes Care Provider Claudine slaughter 04-13-2017 tetanus toxoid, reduced diphtheria toxoid, and acellular pertussis vaccine, adsorbed Monica Crawford MD Work Phone: [facility] Work Phone: Payers Date Payer Category Payer Unknown [id number] 2012 Unknown [employer] PPO OOS [id number] 2012-Present [phone] [address] [place] [address] PPO [id number] 2012 Unknown [employer] PPO OOS [id number] 2012-Present [phone] [address] [place] [address] PPO [id number] Social History Date Type Detail Facility Start: 09-12-2018 End: 06-08-2017 Tobacco smoking status NHIS Occasional tobacco smoker [facility] End: 06-08-2017 History of tobacco use Cigarette Smoker [facility] Start: 09-12-2018 End: 12-13-2022 Cigarettes smoked current (pack per day) - Reported 1 [facility] Work Phone: Start: 09-12-2018 End: 11-19-2022 Tobacco use and exposure User of smokeless tobacco [facility] History of tobacco use Snuff User [facility] Start: 01-03-2020 End: 04-27-2023 Alcohol intake Current drinker of alcohol (finding) [facility] Start: 09-12-2018 History SDOH Alcohol Comment 3 to 4 times a week [facility] Start: 07-17-2012 Tobacco Comment Patient is usi ng smokeless tobacco and electronic cigarette to help quit smoking [facility] Start: 1980 Sex Assigned At Not on file [facility] Start: 11-19-2022 Tobacco smoking stat us PRIS Ex-smoker [facility] Work Phone: End: 06-08-2017 History of tobacco use Current smoker [facility] Work Phone: Start: 11-19-2022 Tobacco Comment Currently usin g nicotine pouches to quit [facility] Start: 11-19-2022 Alcohol Comment 4-5 times a we ek, 2 drinks per night [facility] Start: 12-13-2022 End: 04-27-2023 Tobacco use panel [facility] Work Phone: Adult Depression Screening Assessment 0 [facility] Work Phone: Clinical Notes 03-22-2022 to 07-19-2023 Trav Roger APRN.JOSE - 04/27/2023 2:52 PM Krystal Araiza - 12/23/2022 2:09 PM Milli León LPN - 12/13/2022 12:09 PM EDTMcresencio Nicholson - 12/13/2022 12:02 PM EDTPatient Instructions Note Date & Type Note Facility 07-19-2023 Note HNO ID: [id number] Author: Gilberto Rosenthal APRN.JOSE Service: ? Author [...] None Sister None Brother Heart Paternal Grandmother MS Social History Tobacco Use Smoking status: Former [...] 90 MCG/ACTUATION AEROSOL INHALER Gilberto Rosenthal APRN.CNP [facility] 07-19-2023 Note HNO ID: [id number] Author: Enedina Kaur RT(R) Service: Radiology Author [...] RT Ruby(R) July 19, 2023 12:16 PM [facility] 04-27-2023 Note HNO ID: [id number] Author: Trav Roger APRN.CNP Service: ? Author [...] history is provided by the patient. No billing supervisor was used. Flu Like Symptoms This is [...] None Sister None Brother Heart Paternal Grandmother MS Social History Tobacco Use Smoking status: Former [...] edema. Lymphadenopathy: Cervi (more content not included)... [facility] 04-27-2023 History of Presen t illness Narrative [...] history is provided by the patient. No billing supervisor was used. Flu Like Symptoms This is [...] None Sister None Brother Heart Paternal Grandmother MS Social History Tobacco Use Smoking status: Former [...] ROUTINE FLU A/B + RSV Trav Roger APRN.COUNTERINTELLIGENCE SPECIALIST documented in this encounter [facility] 12-28-2022 Note HNO ID: [id number] Author: Trav Araiza Service: ? Author Type: ? Type: Progress Notes Filed: 12/28/2022 2:11 PM Note Text: POPULATION HEALTH NAVIGATION OUTREACH Action/FYI RP OUTREACH: LVM for Patient to call [phone] to schedule PT Consult Patient Identified by [...] Trav Araiza December 28, 2022 2:11 PM [facility] 12-28-2022 Note Patient Outreach (NE TNAV) JYOTHISABINA ([id number]) 1980 M Date Time Provider Department 12/28/22 NO PCP NETNAV During your visit today, we recorded the following information about you: Trav Araiza 12/28/2022 2:11 PM Signed POPULATION HEALTH NAVIGATION OUTREACH Action/I RP OUTREACH: LVM for Patient to call [phone] to schedule PT Consult Patient Identified by [...] Encounter Status:Closed by TRAV ARAIZA on 12/28/22 [facility] 12-23-2022 Note HNO ID: [id number] Author: Trav Araiza Service: ? Author Type: ? Type: Progress Notes Filed: 12/23/2022 2:10 PM Note Text: POPULATION HEALTH NAVIGATION OUTREACH Action/I RP OUTREACH: LVM for Patient to call [phone] to schedule PT Consult Patient Identified by [...] Trav Araiza December 23, 2022 2:09 PM [facility] 12-23-2022 History of Presen t illness Narrative POPULATION HEALTH NAVIGATION OUTREACH Action/FYI RP OUTREACH: LVM for Patient to call [phone] to schedule PT Consult Patient Identified by [...] 2022 2:09 PM documented in this encounter [facility] 12-23-2022 Note Patient Outreach (NE TNAV) SABINA ROE ([id number]) 1980 M Date Time Provider Department 12/23/22 NO PCP NETNAV During your visit today, we recorded the following information about you: Trav Araiza 12/23/2022 2:10 PM Signed POPULATION HEALTH NAVIGATION OUTREACH Action/FYI RP OUTREACH: LVM for Patient to call [phone] to schedule PT Consult Patient Identified by [...] Encounter Status:Closed by TRAV ARAIZA on 12/23/22 [facility] 12-13-2022 Note HNO ID: [id number] Author: Lyric León LPN Service: ? Author Type: LICENSED NURSE Type: Progress Notes Filed: 12/13/2022 12:58 PM Note Text: Per Dr. Nicholson, Sabina was provided with powerstep original inserts, size 8.5, and instructed/educated in its application, wear, and care. All questions were answered, and patient was able to demonstrate competence with the necessary skills to utilize the above equipment. Lyric León LPN [facility] 12-13-2022 Note HNO ID: [id number] Author: Bettina Nicholson Service: ? Author Type: [...] None Sister None Brother Heart Paternal Grandmother MS Social History Tobacco Use Smoking status: Former [...] Bettina Nicholson DPM Podiatry [address] [facility] [address] Dept: [phone] Dept [facility] 12-13-2022 Note HNO ID: [id number] Author: Lyric León LPN Service: ? Author [...] Foot - New, Pain Lyric León LPN [facility] 12-13-2022 History of Presen t illness Narrative [...] Date Value 11/19/2022 5.3 PCP: Aurora Anton APRN.COUNTERINTELLIGENCE SPECIALIST PAST MEDICAL HISTORY Diagnosis Date Pulmonary embolism [...] None Sister None Brother Heart Paternal Grandmother MS Social History Tobacco Use Smoking status: Former [...] Nicholson DPM Podiatry [address] [facility] [address] Dept: [phone] Dept AMB ROOMING INTAKE FLOWSHEET DATA Pain Pain Level: 7 (7-8 at night; 2-3 in office) Pain Location: Other: See Comment (bilateral feet) Description: Dull, Aching Duration Amount of Time: 2 Duration Units: Months Frequency: Continuous Intervention/Comfort measure: Reposition, Relaxation Patient presents with: Left Foot - New, Pain Right Foot - New, Pain Lyric León LPN documented in this encounter [facility] 12-13-2022 Instructions Bettina Nicholson - 12/13/2022 12:06 PM EDT Powerstep Original Full length. Can purchase at [employer] here in [place], [employer] in [place] or [place]. Also can find in [employer] in [facility]. Powersteps can also be purchased online, [...] fits well together documented in this encounter [facility] 11-22-2022 Miscellaneous Notes Pt notified of [...] if this helps. documented in this encounter [facility] 11-19-2022 Note HNO ID: [id number] Author: RT Lisbeth(Davi) Service: Nuclear Medicine Author [...] RT Lisbeth(R) November 19, 2022 10:51 AM [facility] 11-19-2022 Note HNO ID: [id number] Author: Aurora Anton APRN.COUNTERINTELLIGENCE SPECIALIST Service: ? Author Type: Nurse Practitioner Type: [...] None Sister None Brother Heart Paternal Grandmother MS Patient Allergies ALLERGIES No Known Allergies Current [...] HGB A1C 6. (more content not included)... [facility] 11-19-2022 Instructions Aurora Anton APRN.CNP - 11/19/2022 10:26 AM EDT Complete labs Complete xray Schedule with podiatry Follow up in 1 year documented in this encounter [facility] 11-19-2022 History of Presen t illness [...] None Sister None Brother Heart Paternal Grandmother MS Patient Allergies ALLERGIES No Known Allergies Current [...] ELBOW SPECIAL VIEWS AP/LAT/OTHER RIGHT Aurora Anton APRN.COUNTERINTELLIGENCE SPECIALIST documented in this encounter [facility] 03-22-2022 History of Presen t illness Narrative Scan on 03/20/2022 12:00 AM by External Provider: Consultation - Emergency Medicine [facility] Naz Scott Ma documented in this encounter [facility] Diagnosis Right elbow pain- Primary Pain in joint, upper arm [facility] Diagnosis Achilles tendonitis, bilateral- Primary Foot pain, bilateral Pain in limb Pes planus of both feet [facility] Diagnosis URI, acute- Primary Acute upper respiratory infections of unspecified site documented in this encounter [facility] Summary Purpose Family History No Family History Records FoundNo Family History Records Found Advance Directives No Advanced Directives Records FoundNo Advanced Directives Records Found Reason for Referral Specialty Diagnoses / Procedures Referred By Contac t Referred To Contact Podiatry Diagnoses Foot pain, bilateral Procedures CONSULT TO PODIATRY OFFICE/OUTPATIENT [facility] 60-74 MINUTES Aurora Anton APRN.COUNTERINTELLIGENCE SPECIALIST [address] [place] [address] Referral ID Status Reason Start Date Expiration Date Visits Requested Visits Authorized [id number] Authorized PCP Requested Referral 11/19/2022 11/19/2023 1 1 Specialty Diagnoses / Procedures Referred By Contac t Referred To Contact XR IMAGING Diagnoses Foot pain, bilateral Procedures XR FOOT GENERAL 3V AP/LAT/OBL BILATERAL RADEX FOOT COMPLETE MINIMUM 3 VIEWS Aurora Anton APRN.COUNTERINTELLIGENCE SPECIALIST [address] [place] [address] Xr Imaging Referral ID Status Reason Start Date Expiration Date V isits Requested Visits Authorized [id number] Closed Auto-Generate d Referral 11/19/2022 12/19/2023 1 1 Specialty Diagnoses / Procedures Referred By Contac t Referred To Contact XR IMAGING Diagnoses Right elbow pain Procedures XR ELBOW SPECIAL VIEWS AP/LAT/OTHER RIGHT RADEX ELBOW COMPLETE MINIMUM 3 VIEWS Aurora Anton APRN.COUNTERINTELLIGENCE SPECIALIST [address] [place] [address] Xr Imaging Referral ID Status Reason Start Date Expiration Date V isits Requested Visits Authorized [id number] Closed Auto-Generate d Referral 11/19/2022 12/19/2023 1 1 Specialty Diagnoses / Procedures Referred By Bora t Referred To Contact [facility] Diagnoses Right elbow pain Procedures CONSULT TO PHYSICAL THERAPY PHYSICAL THERAPY EVALUATION HIGH COMPLEX 45 MINS Aurora Anton APRN.COUNTERINTELLIGENCE SPECIALIST [address] [place] [address] [facility] [place] [address] [place] [address] Referral ID Status Reason Start Date Expiration Date Visits Requested Visits Authorized [id number] Pending Review Auto-Generat ed Referral 11/22/2022 11/22/2023 1 1 Additional Source Comments (unrecognized sect ion and content) No Status Records FoundNo Status Records Found INFORMATION SOURCE (unrecogn ized section and content) DATE CREATED AUTHOR AUTHOR'S ORGANIZ ATION 07/21/2023 [facility] Source Comments (unrecognize d section and content) In the event this informatio n is protected by the Federal Confidentiality of Alcohol and Drug Abuse Patient Records regulations: The Federal rules restrict any use of the information to criminally investigate or prosecute any alcohol or drug abuse patient.[facility] the event this information is protected by the Federal Confidentiality of Alcohol and Drug Abuse Patient Records regulations: The Federal rules restrict any use of the information to criminally investigate or prosecute any alcohol or drug abuse patient.[facility] the event this information is protected by the Federal Confidentiality of Alcohol and Drug Abuse Patient Records regulations: The Federal rules restrict any use of the information to criminally investigate or prosecute any alcohol or drug abuse patient.[facility] the event this information is protected by the Federal Confidentiality of Alcohol and Drug Abuse Patient Records regulations: The Federal rules restrict any use of the information to criminally investigate or prosecute any alcohol or drug abuse patient.[facility] the event this information is protected by the Federal Confidentiality of Alcohol and Drug Abuse Patient Records regulations: The Federal rules restrict any use of the information to criminally investigate or prosecute any alcohol or drug abuse patient.[facility] the event this information is protected by the Federal Confidentiality of Alcohol and Drug Abuse Patient Records regulations: The Federal rules restrict any use of the information to criminally investigate or prosecute any alcohol or drug abuse patient.[facility] Reason for Visit (unrecogniz ed section and content) Reason Comments Physical Reason Comments Results Reason Comments New Pain Specialty Diagnoses / Procedures Referred By Bora linton Referred To Contact Podiatry Diagnoses Foot pain, bilateral Procedures CONSULT TO PODIATRY OFFICE/OUTPATIENT NEW HIGH MDM 60-74 MINUTES Aurora Anton APRN.JOSE [address] [place] [id number] Referral ID Status Reason Start Date Expiration Date V isits Requested Visits Authorized [id number] Closed PCP Requested Referral 11/19/2022 11/19/2023 1 1 Reason Comments Cough Cough, congestion x 3 weeks and weak and fatigue x 1 day Care Teams (unrecognized sec tion and content) Senior Mechanical Project Engineer Relationship Specialty Start Date End Date Aurora Anton APRN.CNP [address] [place] [address] [phone] PCP - General Family Medicine 11/19/22 Senior Mechanical Project Engineer Relationship Specialty Start Date End Date Aurora Anton APRN.CNP [address] [place] [address] [id number] PCP - General Family Medicine 11/19/22 Senior Mechanical Project Engineer Relationship Specialty Start Date End Date Aurora Anton APRN.COUNTERINTELLIGENCE SPECIALIST [address] [place] [address] [id number] PCP - General Family Medicine 11/19/22 Senior Mechanical Project Engineer Relationship Specialty Start Date End Date Aurora Anton APRN.COUNTERINTELLIGENCE SPECIALIST [address] [place] [address] [id number] PCP - General Family Medicine 11/19/22 Senior Mechanical Project Engineer Relationship Specialty Start Date End Date Aurora Anton APRN.COUNTERINTELLIGENCE SPECIALIST [address] [place] [address] [phone] PCP - General Family Medicine 11/19/22 FOR [...] BE BASED ON THE PRIMARY CLINICAL RECORDS. [facility] [employer] [facility]. provides no warranty or guarantee of the accuracy or completeness of information in this document.
== END | disposition home or self-care (01) ==
LOC: CVS 12:47
PROVIDERS: PCP Nurse Practitioner Family; Referring Provider Student in an Organized Health Care Education/Training Program; Visit Provider Student in an Organized Health Care Education/Training Program
DX: M79.605 Pain in left leg (principal)
CPT/HCPCS: 93971

== ENCOUNTER 2024-04-06 03:15 | Emergency (ER) | payer BC, SELFPAY ==
[2024-04-06 03:16] VITALS: BP 158/97; PULSE 84; RESP 18; TEMP 37.2; O2SAT 98; BMI 23.9
--- NOTE | 2024-04-06 03:32 | EX.ED.UPPERE ---
HPI History of Present Illness Chief Complaint: Edema Informant: patient Narrative Narrative: Presents swelling and increasing itching left hand forearm region. Bee sting earlier this morning. States initial burning. Started itching this evening unable to sleep. He has been stung before. No lip or tongue swelling. No dyspnea. No medications taken. Prior similar symptoms: Yes [facility] Medical History Smoker Pulmonary embolism Home Medications ?Medication ?Instructions ?Recorded ?Last Taken ?Type NK 04/06/24 Unknown History Allergy/AdvReac Type Severity Reaction Status Date / Time No Known Allergies Allergy Verified 04/06/24 03:16 Social History Smoking Status: Former smoker ROS ROS ED Constitutional Constitutional ED: Denies chills, fever(s) or sweats Eyes Eyes: Denies change in vision ENT ENT ED: Denies dysphagia or sore throat Cardiovascular Cardiovascular: Denies chest pain, leg edema, palpitations or racing heartbeat Respiratory/Chest Respiratory/Chest: Denies cough, dyspnea or dyspnea on exertion Gastrointestinal Gastrointestinal: Denies abdominal pain, diarrhea, nausea or vomiting Genitourinary Genitourinary ED: Denies dysuria, hematuria or urinary frequency Musculoskeletal Musculoskeletal: Denies back pain, extremity pain or neck pain Integumentary Reports other Details: Bee sting left hand ; Denies rash or wounds Neurologic Neurologic: Denies headache(s), paresthesias or weakness EXAM Physical Exam Const Vital Signs: 04/06/24 03:16 04/06/24 03:16 Temperature 98.9 F Temperature Source Oral Pulse Rate 84 Respiratory Rate 18 Respiratory Effort Normal Non-Labored Respiratory Pattern Normal Blood Pressure 158/97 H Blood Pressure Mean 117 Pulse Ox 98 Oxygen Delivery Method Room Air Positive well nourished and well developed General Appearance ED: well developed and NAD HEENT Reports moist mucous membranes HEENT Narrative: No lip or tongue swelling. No stridor. normocephalic and atraumatic Eyes EOMs intact bilaterally and conjunctivae normal General Eye ED: Yes normal appearance of both eyes Neck no lymphadenopathy and supple General: Negative for tenderness Chest Wall Chest: Negative for tenderness Resp normal respiratory effort and normal air movement Effort and Inspection: symmetric chest movement; Negative for respiratory distress Cardio regular rate, regular rhythm and no murmurs Peripheral Pulses: pulses 2+ throughout GI normal to inspection, nondistended, normoactive bowel sounds and non-tender Palpation: Negative for guarding or rebound tenderness present Back/Spine no CVA tenderness and no thoracic nor lumbar tenderness Extremity Extremity Narrative: Left upper extremity: Puncture noted ulnar aspect proximal hand small urticarial lesion. There is swelling to the ulnar aspect the hand that progressed to the distal forearm. Soft compartments. There is mild erythema in the area. General Extremety ED: Yes edema; Negative for tenderness General Extremity: edema Neuro oriented x3 and no sensory deficits noted Sensorium / Orientation: awake and alert Skin Skin Narrative: See above MDM MDM MDM Narrative Medical decision making narrative: Interventions / MDM: Differential diagnosis: Localized reaction to bee sting Diagnosis considered but do not suspect: No anaphylaxis, no cellulitis My EKG interpretation: N/A Imaging independently reviewed and interpreted by myself: N/A External documents reviewed: N/A Test considered but not ordered:N/A ED course: Patient localized reaction to bee sting causing swelling and now itching. I discussed process of injury with inflammatory markers with patient. He he has no anaphylaxis. He drove himself here. Juaquin wrap was placed for the swelling ice for the itching. He does have diphenhydramine at home. Discussed using 25 to 50 mg every 6 hours as needed. Caution for sedation discussed with the patient. Work note given for tomorrow. Discussed symptoms should start to improve in the next 24 to 48 hours. All questions were answered. Re-evaluation: stable Disposition discussed with patient/family/significant other: Patient Case discussed with consulting clinician: N/A This note was generated with [employer] dictation software. It may contain incorrect words, spelling, and punctuation that were not noted in checking the note before signing. Discharge Plan Triage Chief Complaint: Edema ED Provider: Fortino Weston Dx/Rx/DC Orders Clinical Impression: Local reaction to bee sting, Swelling of hand Instructions: Bite Sting Insect Spider Scorpion Prescriptions: No Action NK Stand Alone Forms: ED Work / School Excuse Primary Care Provider: Aurora Anton Referrals: Aurora Anton, [employer] [Primary Care Provider] - 1 Week if not improving Activity Restrictions/Additional Instructions: This is a local reaction to the bee sting from yesterday morning. Juaquin wrap for comfort continue to ice. May use Benadryl 25 to 50 mg every 6 hours as needed for itching. This will cause sleepiness. This should start to improve in the next 24 to 48 hours. Print Language: Swedish Disposition Disposition: Home, Self Care
[2024-04-06 03:40] VITALS: BP 158/90; PULSE 87; RESP 16; TEMP 36.7; O2SAT 97
== END 2024-04-06 03:43 | disposition home or self-care (01) ==
LOC: ED 03:39
PROVIDERS: Emergency Provider Emergency Medicine; PCP Nurse Practitioner Family; Visit Provider Emergency Medicine
DX: T63.444A Toxic effect of venom of bees, undetermined, initial encounter (principal); M79.89 Other specified soft tissue disorders; Z87.891 Personal history of nicotine dependence
CPT/HCPCS: 99282